=== PATIENT | male | born 1945 | race Two or more races ===

== ENCOUNTER → 2024-07-04 | Outpatient (CLI) | payer MEDICARE, MEDICAID, SELFPAY ==
[2024-07-04 11:19] LABS: Basophils # (Auto) 0.1 Thou/mm3 (0.0-0.2); Basophils % (Auto) 1 % (0-2.5); Eosinophils # (Auto) 0.3 Thou/mm3 (0.0-0.5); Eosinophils % (Auto) 5 % (0-10); Hematocrit 34.1 % (41.0-53.0); Hemoglobin 11.5 g/dL (13.5-16.0); Immature Granulocytes % (Auto) 0 % (0-0); Immature Granulocytes Auto 0.02 Thou/mm3 (0.00-0.00); Lymphocytes % (Auto) 32 % (10-50); Mean Corpuscular HGB Conc 33.7 g/dl (31.0-37.0); Mean Corpuscular Hemoglobin 28.8 pg (25.0-35.0); Mean Corpuscular Volume 86 fL (80-100); Monocytes # (Auto) 0.5 Thou/mm3 (0.0-0.8); Monocytes % (Auto) 8 % (0-12); Neutrophils # (Auto) 3.4 Thou/mm3 (1.8-7.7); Neutrophils % (Auto) 55 % (37-80); Nucleated Red Blood Cell % 0 /100 WBC (0); Platelet Count 202 Thou/mm3 (140-440); RDW Standard Deviation 44.5 fL (35.1-43.9); Red Blood Count 3.99 Miln/mm3 (4.50-5.90); White Blood Count 6.2 Thou/mm3 (3.8-10.6)
[2024-07-04 11:44] LABS: Collection Type, Urine Clean Catch
[2024-07-04 11:48] LABS: Glucose Estimated Average 140 mg/dL (80-131); Hemoglobin A1C 6.5 % Hgb (4.8-6.0)
[2024-07-04 11:54] LABS: Alanine Aminotransferase 8 U/L (10-49); Albumin, Serum 4.1 gm/dL (3.4-4.8); Alkaline Phosphatase 91 U/L (46-116); Anion Gap 8 (7-16); Aspartate Amino Transferase 19 U/L (0-34); BUN/Creatinine Ratio 16 Ratio (12-20); Bilirubin,Direct 0.2 mg/dL (0.0-0.3); Bilirubin,Total 0.5 mg/dL (0.3-1.2); Blood Urea Nitrogen 25 mg/dL (9-23); Calcium 8.8 mg/dL (8.3-10.6); Carbon Dioxide 26.7 mMol/L (20.0-31.0); Cardiac Risk Estimate 2.2 RATIO (4.0-6.7); Chloride 108 mMol/L (98-107); Cholesterol 126 mg/dL (132-200); Creatinine (Component) 1.6 mg/dL (0.6-1.3); Glucose 78 mg/dL (74-106); HDL Cholesterol 57 mg/dL (40-60); LDL Cholesterol,Calculated 55 mg/dL (0-130); Osmolality,Calculated 288 (275-295); Phosphorous 2.4 mg/dL (2.4-5.1); Potassium 3.8 mMol/L (3.4-5.1); Sodium 143 mMol/L (136-145); Triglycerides 70 mg/dL (30-150); eGFR 44 See Note
[2024-07-04 12:14] LABS: Bilirubin,Urine Negative (Negative); Blood,Urine Negative (Negative); Clarity,Urine Clear (Clear/Hazy); Color,Urine Lt-Yellow (Lt Yel-Yel); Glucose, Urine Negative (Negative); Ketones,Urine Negative (Negative); Leukocyte Esterase,Urine Negative (Negative); Nitrite,Urine Negative (Negative); PH,Urine 6.5 (5.0-7.0); Protein,Urine Trace (Neg - Trace); RBC,Urine 2 /hpf (0-3); Specific Gravity,Urine 1.012 (1.001-1.035); Squamous Epithelial Cell,Urine 1 /hpf (0-5); Urobilinogen,Urine Negative mg/dL (0.0-1.0); WBC,Urine < 1 /hpf (0-5)
== END | disposition home or self-care (01) ==
LOC: COPL 10:37
PROVIDERS: PCP Internal Medicine; Referring Provider Internal Medicine Nephrology; Visit Provider Internal Medicine Nephrology
DX: E78.5 Hyperlipidemia, unspecified (principal); E11.9 Type 2 diabetes mellitus without complications
CPT/HCPCS: 36415; 80048; 80061; 80076; 81001; 83036; 84100; 85025

== ENCOUNTER → 2024-07-07 | Outpatient (CLI) | payer MEDICARE, MEDICAID, SELFPAY ==
--- NOTE | 2024-07-07 13:44 | XR_ITS ---
Examination: Venous duplex lower extremity sonogram, bilateral. Date and time of exam: July 07, 2024 1356 hours INDICATIONS: Bilateral leg swelling beginning 2 months ago Technique: Multiple sonographic images of the deep venous system have been obtained. B-mode/2-D grayscale imaging of vascular structures and Doppler spectral analysis (waveforms) and color performed Both legs are examined. Findings: Deep venous systems do not demonstrate abnormal echogenicity. All visualized deep veins exhibit compressibility. All visualized deep veins exhibit augmentation. Impression: Negative for deep vein thrombosis
== END | disposition home or self-care (01) ==
PROVIDERS: PCP Internal Medicine; Referring Provider Internal Medicine; Visit Provider Internal Medicine
DX: R60.9 Edema, unspecified (principal); M79.606 Pain in leg, unspecified
CPT/HCPCS: 93970

== ENCOUNTER → 2024-07-27 | Outpatient (CLI) | payer MEDICARE, MEDICAID, SELFPAY ==
[2024-07-27 11:45] LABS: Basophils % (Auto) 1 % (0-2.5); Eosinophils # (Auto) 0.2 Thou/mm3 (0.0-0.5); Eosinophils % (Auto) 3 % (0-10); Hematocrit 34.6 % (41.0-53.0); Hemoglobin 11.9 g/dL (13.5-16.0); Immature Granulocytes % (Auto) 0 % (0-0); Immature Granulocytes Auto 0.01 Thou/mm3 (0.00-0.00); Lymphocytes # (Auto) 1.5 Thou/mm3 (1.0-4.8); Lymphocytes % (Auto) 26 % (10-50); Mean Corpuscular HGB Conc 34.4 g/dl (31.0-37.0); Mean Corpuscular Hemoglobin 29.4 pg (25.0-35.0); Mean Corpuscular Volume 85 fL (80-100); Monocytes # (Auto) 0.5 Thou/mm3 (0.0-0.8); Monocytes % (Auto) 8 % (0-12); Neutrophils # (Auto) 3.7 Thou/mm3 (1.8-7.7); Neutrophils % (Auto) 63 % (37-80); Nucleated Red Blood Cell % 0 /100 WBC (0); Platelet Count 133 Thou/mm3 (140-440); RDW Standard Deviation 46.9 fL (35.1-43.9); Red Blood Count 4.05 Miln/mm3 (4.50-5.90); White Blood Count 5.9 Thou/mm3 (3.8-10.6)
[2024-07-27 11:54] LABS: Glucose Estimated Average 123 mg/dL (80-131); Hemoglobin A1C 5.9 % Hgb (4.8-6.0)
[2024-07-27 12:10] LABS: Alanine Aminotransferase 15 U/L (10-49); Albumin/Globulin Ratio 2.2 (1.2-2.2); Alkaline Phosphatase 79 U/L (46-116); Anion Gap 7 (7-16); Aspartate Amino Transferase 17 U/L (0-34); BUN/Creatinine Ratio 16 Ratio (12-20); Bilirubin,Total 0.5 mg/dL (0.3-1.2); Blood Urea Nitrogen 21 mg/dL (9-23); Calcium 8.8 mg/dL (8.3-10.6); Calcium (Corrected) 8.8 mg/dL (8.5-10.1); Carbon Dioxide 29.2 mMol/L (20.0-31.0); Cardiac Risk Estimate 1.7 RATIO (4.0-6.7); Chloride 105 mMol/L (98-107); Cholesterol 136 mg/dL (132-200); Creatinine (Component) 1.3 mg/dL (0.6-1.3); Globulin 1.8 gm/dL (2.3-3.5); Glucose 72 mg/dL (74-106); HDL Cholesterol 79 mg/dL (40-60); LDL Cholesterol,Calculated 45 mg/dL (0-130); Osmolality,Calculated 283 (275-295); Potassium 4.1 mMol/L (3.4-5.1); Sodium 141 mMol/L (136-145); Total Protein 5.8 gm/dL (5.7-8.2); Triglycerides 59 mg/dL (30-150); eGFR 56 See Note
[2024-07-27 14:15] LABS: Creatinine MALB Rnd Ur 77 mg/dL (30-125); Microalbumin Creat Ratio 97 mg/gCrea (<30); Microalbumin, Random Urine 75 mg/L (0-300)
== END | disposition home or self-care (01) ==
LOC: COPL 10:55
PROVIDERS: PCP Internal Medicine; Referring Provider Internal Medicine; Visit Provider Internal Medicine
DX: I12.9 Hypertensive chronic kidney disease with stage 1 through stage 4 chronic kidney disease, or unspecified chronic kidney disease (principal); E11.22 Type 2 diabetes mellitus with diabetic chronic kidney disease; N18.30 Chronic kidney disease, stage 3 unspecified; E78.5 Hyperlipidemia, unspecified
CPT/HCPCS: 36415; 80053; 80061; 82043; 82570; 83036; 85025

== ENCOUNTER → 2024-10-10 | Outpatient (CLI) | payer MEDICARE, MEDICAID, SELFPAY ==
[2024-10-10 11:42] LABS: Collection Type, Urine Clean Catch
[2024-10-10 11:58] LABS: Basophils % (Auto) 0 % (0-2.5); Eosinophils % (Auto) 0 % (0-10); Hematocrit 39.5 % (41.0-53.0); Hemoglobin 13.3 g/dL (13.5-16.0); Immature Granulocytes % (Auto) 0 % (0-0); Immature Granulocytes Auto 0.03 Thou/mm3 (0.00-0.00); Lymphocytes % (Auto) 26 % (10-50); Mean Corpuscular HGB Conc 33.7 g/dl (31.0-37.0); Mean Corpuscular Hemoglobin 28.5 pg (25.0-35.0); Mean Corpuscular Volume 85 fL (80-100); Monocytes # (Auto) 0.6 Thou/mm3 (0.0-0.8); Monocytes % (Auto) 7 % (0-12); Neutrophils # (Auto) 5.1 Thou/mm3 (1.8-7.7); Neutrophils % (Auto) 66 % (37-80); Nucleated Red Blood Cell % 0 /100 WBC (0); Platelet Count 184 Thou/mm3 (140-440); RDW Standard Deviation 46.5 fL (35.1-43.9); Red Blood Count 4.67 Miln/mm3 (4.50-5.90); White Blood Count 7.7 Thou/mm3 (3.8-10.6)
[2024-10-10 12:12] LABS: Anion Gap 8 (7-16); BUN/Creatinine Ratio 17 Ratio (12-20); Blood Urea Nitrogen 25 mg/dL (9-23); Calcium 8.9 mg/dL (8.3-10.6); Calcium (Corrected) 8.9 mg/dL (8.5-10.1); Carbon Dioxide 31.9 mMol/L (20.0-31.0); Chloride 102 mMol/L (98-107); Creatinine (Component) 1.5 mg/dL (0.6-1.3); Glucose 95 mg/dL (74-106); Osmolality,Calculated 287 (275-295); Phosphorous 3.5 mg/dL (2.4-5.1); Sodium 142 mMol/L (136-145); eGFR 47 See Note
[2024-10-10 12:13] LABS: Bilirubin,Urine Negative (Negative); Blood,Urine Negative (Negative); Clarity,Urine Clear (Clear/Hazy); Color,Urine Lt-Yellow (Lt Yel-Yel); Glucose, Urine Negative (Negative); Hyaline Casts,Urine < 1 /hpf (0-1); Ketones,Urine Negative (Negative); Leukocyte Esterase,Urine Negative (Negative); Nitrite,Urine Negative (Negative); PH,Urine 7.5 (5.0-7.0); Protein,Urine Trace (Neg - Trace); RBC,Urine < 1 /hpf (0-3); Specific Gravity,Urine 1.011 (1.001-1.035); Squamous Epithelial Cell,Urine < 1 /hpf (0-5); Urobilinogen,Urine Negative mg/dL (0.0-1.0); WBC,Urine 1 /hpf (0-5)
== END | disposition home or self-care (01) ==
LOC: COPL 11:07
PROVIDERS: PCP Internal Medicine; Referring Provider Internal Medicine; Visit Provider Internal Medicine
DX: I12.9 Hypertensive chronic kidney disease with stage 1 through stage 4 chronic kidney disease, or unspecified chronic kidney disease (principal); N18.30 Chronic kidney disease, stage 3 unspecified
CPT/HCPCS: 36415; 80069; 81001; 85025

== ENCOUNTER 2024-12-22 20:18 | Emergency (ER) | payer MEDICARE, MEDICAID, SELFPAY ==
[2024-12-22 20:21] VITALS: BMI 29.8
[2024-12-22 22:21] VITALS: BP 202/84; BP 218/104; PULSE 69; RESP 16; TEMP 37.1; O2SAT 96
--- NOTE | 2024-12-22 22:51 | PD.EDRME ---
Rapid Medical Screening Exam RME Arrival date/time: 12/22/24 20:18 Chief Complaint: General Adult/Misc Complain Time Seen by Provider: 12/22/24 22:10 Vital signs: Vital Signs Temperature 98.8 F 12/22/24 22:21 Pulse Rate 69 12/22/24 22:21 Respiratory Rate 16 12/22/24 22:21 Blood Pressure 202/84 H 12/22/24 22:21 Pulse Oximetry (%) 96 12/22/24 22:21 Oxygen Delivery Method Room Air 12/22/24 22:21 Vital signs reviewed by provider: Yes RME Narrative: 79-year-old male presents to the ED with a complaint of inability to ambulate x 1 week as well as bilateral lower extremity edema for the past 3 weeks. He is under the care of a neurosurgeon in [place] and states he has a scheduled surgery on his lumbar spine on February 13. He states he did have a fall last Thursday. He has not contacted his neurosurgeon regarding the change in his condition. He denies any numbness or tingling to his bilateral lower extremities. He denies any loss of bladder or bowel control. He is also complaining of lower extremity edema. He has not contacted his primary care physician. Blood pressure is elevated tonight, stating he has not taken his blood pressure medication in 3 days because it is located in the kitchen and he has been unable to ambulate. His son had to carry him to the car tonight in order to get him to the ER. I have greeted and performed a focused initial assessment of this patient. A comprehensive ED assessment and evaluation of the patient, analysis of all test results, and completion of the medical decision making process will be conducted by additional ED providers.
--- NOTE | 2024-12-22 22:54 | XR_ITS ---
Examination: CT brain head without contrast. 2-D sagittal coronal reconstructions Date and time of exam:December 23, 2024 12:13 AM Comparison January 11, 2024 INDICATIONS: Altered mental status unable to walk today weakness CTDI: vol (mGy):51 DLP: (mGycm):972 Technique: Multiple CT axial sections of the brain have been obtained, 5 mm slice thickness. Contrast has not been administered. 2-D sagittal, coronal reconstructions have been obtained Low dose protocols were performed. One or more of the following dose reduction techniques were used; automated exposure control, adjustment of the mA and/or KV according to patient size, use of iterative reconstruction technique. Findings: No significant ventricular enlargement. Old infarct left cerebellar hemisphere Intra-axial or extra-axial hemorrhage density is not seen. No mass effect or midline shift Basal cisterns are not remarkable. Fourth ventricle is midline. Cranial vault intact. Chronic maxillary sinusitis Impression: Negative for acute hemorrhage, mass effect or midline shift Consider brain MRI follow up stroke protocol
--- NOTE | 2024-12-22 22:54 | XR_ITS ---
Examination: CT chest, without intravenous contrast. CT abdomen, without intravenous contrast. CT pelvis, without intravenous contrast. 2-D sagittal and coronal reconstructions. 3-D reconstructions. Date and time of exam:December 23, 2024 0016 hours INDICATIONS: Onset chest and generalized abdominal pain today CTDI vol (mgy) 11 DLP (MGycm)840 Technique: Multiple CT images, 3.0 mm slice thickness, obtained chest, abdomen, pelvis, with the high-resolution 64 slice scanner.. Sagittal and coronal 2-D reconstructions are obtained. 3-D reconstructions Low dose protocols were performed. One or more of the following dose reduction techniques were used; automated exposure control, adjustment of the mA and/or KV according to patient size, use of iterative reconstruction technique. Findings: No thoracic aortic aneurysm dilatation Pulmonary artery segments are not enlarged Moderate calcification left anterior descending coronary artery Mild enlargement cardiac contour 4 mm pulmonary nodule right lower lobe No lobar pneumonia or pulmonary edema. Small liver calcifications Gallbladder sludge versus calculi No pancreatic mass Mild nodular thickening left adrenal gland Moderate renal parenchymal scar formation No renal or ureteral calculi Aorta normal size Lipomatous mass in the left lateral abdominal wall image 176 No bowel obstruction No diverticulitis Contracted urinary bladder minimal urinary bladder wall thickening Prominent osteopenia with lumbar fusion L5-S1 with satisfactory alignment, diffuse moderate thoracic lumbar degenerative disc disease IMPRESSION: No pneumonia or pulmonary edema 4 mm pulmonary nodule right lower lobe, with this study is baseline recommended 6 month follow-up CT chest without contrast Gallbladder sludge versus calculi, negative for cholecystitis No renal or ureteral calculi. No pericecal inflammatory change No bowel obstruction or diverticulitis
--- NOTE | 2024-12-22 22:55 | XR_ITS ---
Examination: CT lumbar spine, without contrast. 2-D sagittal reconstructions. 2-D coronal reconstructions. 3-D reconstructions. Date and time of exam:December 23, 2024 0019 hours INDICATIONS: Low back pain with bilateral leg weakness today CTDI: vol (mGy): 51 DLP: (mGycm):1490 Technique: Multiple 1.25 mm axial sections of the lumbar spine without intravenous contrast have been obtained. 2-D sagittal and coronal reconstructions have been obtained. 3-D reconstructions have been obtained. Low dose protocols were performed. One or more of the following dose reduction techniques were used; automated exposure control, adjustment of the mA and/or KV according to patient size, use of iterative reconstruction technique. Findings: Prominent osteopenia Transpedicular lumbar fusion L4-S1 with satisfactory alignment No lumbar fracture L5-S1 moderate bilateral neural foraminal stenosis L4-L5 moderate bilateral neural foraminal stenosis More cephalad levels unremarkable IMPRESSION: No lumbar fracture Transpedicular lumbar fusion L4-S1 with satisfactory alignment L5-S1, L4-L5 moderate bilateral neural foraminal stenosis
--- NOTE | 2024-12-22 22:55 | EKG_ITS ---
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: : 1945 Requested By: Aftab David Order Number: [id number] Reading MD: Aftab David Measurements Intervals [place] Rate: 74 P: 241 RI: 339 QRS: -13 QRSD: 83 T: -79 QT: 391 QTc: 436 Interpretive Statements ELECTRONIC ATRIAL PACEMAKER ST DEVIATION AND MODERATE T-WAVE ABNORMALITY, CONSIDER ANTEROLATERAL ISCHEMIA [-0.1+ mV T-WAVE IN V3-V6] ST DEVIATION AND MODERATE T-WAVE ABNORMALITY, CONSIDER INFERIOR ISCHEMIA [-0.1+ mV T-WAVE IN II/aVF] Compared to ECG 01/09/2024 16:05:29 T-wave abnormality now present Possible ischemia now present Sinus rhythm no longer present First degree AV block no longer present Myocardial infarct finding no longer present /store/S0/[id number]/[id number].pdf
--- NOTE | 2024-12-22 22:55 | XR_ITS ---
Examination: AP chest single view Technique AP portable upright chest single view Date and time: December 22, 2024, 1104 hours INDICATIONS: Chest pain shortness of breath today FINDINGS: Normal heart size Cardiac leads stable position compared to November 06, 2023 No pneumonia or pulmonary edema IMPRESSION: No active disease
[2024-12-22 23:21] VITALS: BP 202/84; PULSE 69
[2024-12-22] MEDS: cloNIDine HCL 0.1 MG TABLET 0.3 MG PO (23:21)
[2024-12-22 23:45] LABS: Lactate (Lactic Acid) 1.9 mMol/L (0.4-2.0)
[2024-12-22 23:51] LABS: Basophils % (Auto) 0 % (0-2.5); Eosinophils # (Auto) 0.2 Thou/mm3 (0.0-0.5); Eosinophils % (Auto) 3 % (0-10); Hematocrit 39.1 % (41.0-53.0); Hemoglobin 13.5 g/dL (13.5-16.0); Immature Granulocytes % (Auto) 0 % (0-0); Immature Granulocytes Auto 0.02 Thou/mm3 (0.00-0.00); Lymphocytes # (Auto) 1.9 Thou/mm3 (1.0-4.8); Lymphocytes % (Auto) 26 % (10-50); Mean Corpuscular HGB Conc 34.5 g/dl (31.0-37.0); Mean Corpuscular Hemoglobin 29.6 pg (25.0-35.0); Mean Corpuscular Volume 86 fL (80-100); Monocytes # (Auto) 0.6 Thou/mm3 (0.0-0.8); Monocytes % (Auto) 8 % (0-12); Neutrophils # (Auto) 4.4 Thou/mm3 (1.8-7.7); Neutrophils % (Auto) 62 % (37-80); Nucleated Red Blood Cell % 0 /100 WBC (0); Platelet Count 207 Thou/mm3 (140-440); RDW Standard Deviation 47.5 fL (35.1-43.9); Red Blood Count 4.56 Miln/mm3 (4.50-5.90); White Blood Count 7.1 Thou/mm3 (3.8-10.6)
[2024-12-22 23:57] LABS: Base Excess, Venous 2 (-3-3); O2 Saturation, Venous 50 % (96-97); PCO2, Venous 43 mmHg (36-56); PO2, Venous 26 mmHg (15-58)
[2024-12-23] VITALS (43 sets, daily range): BP systolic 125–216; BP diastolic 69–112; PULSE 61–95; RESP 12–31; TEMP 36.4–37.1; O2SAT 93–99
--- NOTE | 2024-12-23 | XR_ITS ---
Examination: Venous duplex lower extremity sonogram, bilateral. Date and time of exam: December 23, 2024 0028 hours INDICATIONS: Bilateral hip and leg pain one year Technique: Multiple sonographic images of the deep venous system have been obtained. B-mode/2-D grayscale imaging of vascular structures and Doppler spectral analysis (waveforms) and color performed Both legs are examined. Findings: Deep venous systems do not demonstrate abnormal echogenicity. All visualized deep veins exhibit compressibility. All visualized deep veins exhibit augmentation. Impression: Negative for deep vein thrombosis
--- NOTE | 2024-12-23 | XR_ITS ---
Examination: MRI brain without intravenous contrast. Date and time of exam: December 23, 2024 1310 hours Comparison August 2011 INDICATIONS: Weakness and swelling in the legs 3 weeks, unable to walk one week Technique: Multiple axial and sagittal images of the brain obtained. Siemens high-resolution 1.5 [place] short bore scanners utilized. Sagittal sections, T1-weighted, TR 500, TE 14, are performed. Axial sections proton-density and T2-weighted have been obtained. Inversion recovery axial images, TR 9, 260, TE 111, TI 2500. Diffusion weighted images, axial sections, TR 4800, TE 128, B value 1000 Axial sections, ADC map, TR 4800, TE 128 Findings: Enlargement of the sella turcica is not present. The optic chiasm and infundibular are not remarkable. Prepontine and interpeduncular cisterns are not enlarged. There is no localized enlargement of the medulla or rozina. Fourth ventricle and cerebellar tonsils appear normal in position. No subacute area of hemorrhage density is seen. Mass in the cerebellopontine angle region is not evident. Globes symmetrical. Orbital musculature including medial lateral rectus muscles do not exhibit abnormality. Diffusion-weighted images demonstrate no focus of restricted diffusion. Increased white matter signal prominent, including old infarct left cerebellar hemisphere Mass effect upon the ventricular system is not identified. Impression: Negative for acute hemorrhage mass effect or midline shift No acute infarct Old infarct left cerebellar hemisphere
--- NOTE | 2024-12-23 | XR_ITS ---
Examination: MRI lumbar spine without contrast Date and time of exam: December 23, 2024 1328 hours Comparison November 04, 2023 INDICATIONS: Back pain, history fall one week ago difficulty walking and lower extremity weakness Technique: Multiple MRI axial and sagittal sections lumbar spine. Sagittal T2-weighted images, TR 3500, TE 118 T1 weighted transverse sections, TR 688 T8.5, T2-weighted sagittal sections T1 weighted sagittal sections TR 621, TE 30 T2 axial sections, TR 4, 190, TE 84. Findings: Transpedicular lumbar fusion L4-S1 with anatomic alignment No acute lumbar fracture Disc desiccation L2-L3, L3-L4 No spondylolisthesis Laminectomies L5 L4 L5-S1 no disc protrusion L4-L5 no disc protrusion L3-L4 moderate to severe overall spinal stenosis, 5 mm central lumbar disc bulge, prominent facet arthropathy and thickening of ligamentum flavum, circumferentially narrowing the thecal sac, axial image 8 with mild right L3 ganglionic compression L2-L3 2 mm central lumbar disc bulge L1-L2 no disc protrusion IMPRESSION: L3-L4 moderate to severe overall spinal stenosis
[2024-12-23 00:01] LABS: Sed Rate (ESR) 24 mm/hr (0-20)
[2024-12-23 00:03] LABS: Partial Thromboplastin Time 20.7 Seconds (22.0-36.0); Prothrombin Time 10.7 Seconds (9.0-12.2)
[2024-12-23 00:06] LABS: B-Type Natriuretic Peptide 179 pg/mL (0-100)
[2024-12-23 00:20] LABS: Collection Type, Urine Clean Catch
[2024-12-23 00:21] LABS: Alanine Aminotransferase 7 U/L (10-49); Albumin, Serum 4.3 gm/dL (3.4-4.8); Albumin/Globulin Ratio 1.9 (1.2-2.2); Alcohol, Blood Medical < 3.0 mg/dL (0-10.0); Alkaline Phosphatase 121 U/L (46-116); Anion Gap 13 (7-16); Aspartate Amino Transferase 18 U/L (0-34); BUN/Creatinine Ratio 12 Ratio (12-20); Bilirubin,Direct 0.1 mg/dL (0.0-0.3); Bilirubin,Total 0.4 mg/dL (0.3-1.2); Blood Urea Nitrogen 17 mg/dL (9-23); Calcium 9.1 mg/dL (8.3-10.6); Calcium (Corrected) 9.1 mg/dL (8.5-10.1); Carbon Dioxide 27.2 mMol/L (20.0-31.0); Chloride 107 mMol/L (98-107); Creatine Kinase 66 U/L (34-171); Creatinine (Component) 1.4 mg/dL (0.6-1.3); Estimated Creatinine Clearance 43.5 mL/min (>60); Free T4 (Free Thyroxine) 1.35 ng/dL (0.89-1.76); Globulin 2.3 gm/dL (2.3-3.5); Glucose 108 mg/dL (74-106); Osmolality,Calculated 294 (275-295); Potassium 3.6 mMol/L (3.4-5.1); Procalcitonin 0.05 ng/ml (0.0-0.49); Sodium 147 mMol/L (136-145); Total Protein 6.6 gm/dL (5.7-8.2); Troponin I < 0.020 ng/mL (0.0-0.045); eGFR 51 See Note
[2024-12-23 00:29] LABS: Bilirubin,Urine Negative (Negative); Blood,Urine Negative (Negative); Clarity,Urine Clear (Clear/Hazy); Color,Urine Lt-Yellow (Lt Yel-Yel); Culture Indicated,Urine Yes; Glucose, Urine 4+ (Negative); Ketones,Urine Negative (Negative); Leukocyte Esterase,Urine Negative (Negative); Nitrite,Urine Negative (Negative); PH,Urine 6.5 (5.0-7.0); Protein,Urine Trace (Neg - Trace); RBC,Urine < 1 /hpf (0-3); Specific Gravity,Urine 1.012 (1.001-1.035); Squamous Epithelial Cell,Urine 3 /hpf (0-5); Urobilinogen,Urine Negative mg/dL (0.0-1.0); WBC,Urine 11 /hpf (0-5)
[2024-12-23 00:38] LABS: Amphetamine/Methamp Scrn,U Negative (Negative); Barbiturate Screen,Urine Negative (Negative); Benzodiazepines Screen,Urine Negative (Negative); Benzoylecgonine Screen, Ur Negative (Negative); Fentanyl Screen,Urine Negative (Negative); Opiate Screen,Urine Positive (Negative); THC Screen,Urine Negative (Negative)
--- NOTE | 2024-12-23 01:07 | PRELIM_ITS ---
CT scan of the head without intravenous contrast (axial sections with sagittal and coronal reformats) December 23, 2024 0013 hours Clinical history: Can't ambulate Comparison: None Findings: There is no evidence of intracranial hemorrhage, mass effect or midline shift. There is old infarct in the left cerebellum. There are periventricular white matter hypodensities, compatible with chronic small vessel ischemia. No definitive wedge shaped acute infarcts are detected. Please note that subtle early infarcts are better assessed using diffusion weighted MR imaging if clinically indicated. There is mild volume loss. There is atheromatous calcification of the intracranial arteries. The calvarium is unremarkable. There are chronic fractures of bilateral lamina papyracea. There is mild mucosal thickening in the bilateral maxillary sinuses. The mastoid air cells are clear. Impression: No evidence of intracranial hemorrhage, mass effect or midline shift. If there are persistent clinical symptoms or additional clinical concerns, consider MRI. Generalized cerebral atrophy and chronic small vessel ischemic change with chronic infarct as described above. Report Electronically Signed By: Flynn Portillo 12/23/2024 1:06:36 AM [EST]
--- NOTE | 2024-12-23 01:10 | PRELIM_ITS ---
ORIGINAL REPORT CT scan of the chest, abdomen and pelvis without intravenous contrast (axial sections with 3D, sagittal and coronal reformats) December 23, 2024 0016 hours Clinical History: Chest/abdominal pain Comparison: None Findings: Dependent and streaky atelectasis at the lung bases. The lungs are otherwise clear. There is no focal consolidation, pleural effusion or pneumothorax. The thoracic aorta demonstrates atheromatous calcification without evidence of aneurysm. No evidence of mediastinal mass or lymphadenopathy. There is no pericardial effusion. A cardiac pacemaker is identified in the left chest wall with its lead tips in the right atrium and ventricle respectively. The spleen, pancreas and adrenals are unremarkable on this noncontrast study. Calcific densities are seen in the liver, likely representing calcified granulomas. There are dependent hyperdensities within the gallbladder which may represent sludge/calculi without CT features to suggest acute cholecystitis. Nonspecific perinephric fat stranding is noted bilaterally. No evidence of renal/ureteric calculus or hydroureteronephrosis. No evidence of bowel obstruction. Ileocolic anastomotic sutures are seen in the right mid abdomen. A moderate amount of fecal material is present in the colon. The abdominal aorta demonstrates atheromatous calcification without evidence of aneurysm. The urinary bladder is partially distended and shows mild wall thickening; possibility of cystitis or bladder outlet obstruction cannot be excluded. There is mild prostatomegaly indenting the bladder base. There is no free fluid or free air. Osseous degenerative changes are noted. There are bilateral laminectomies at L5. There are pedicle fixation screws and posterior fusion rods from L4 through S1. There is mild chronic anterior wedge compression deformity of the T1 vertebral body. There is anterior fusion device in the mid cervical spine incompletely imaged. There is a 5.3 x 2.6 cm intramuscular lipoma in the left mid lateral abdominal wall. Please note that evaluation of soft tissue/vascular structures and bowel loops is limited due to absence of IV and oral contrast. Impression: 1. No acute intrathoracic pathology. 2. Gallbladder sludge/calculi without CT features to suggest acute cholecystitis. 3. No evidence of bowel obstruction. 4. Partially distended urinary bladder with mild wall thickening; possibility of cystitis or bladder outlet obstruction cannot be excluded. 5. Other findings as described above. Suggest clinical correlation and follow up accordingly. Report Electronically Signed By: Flynn Portillo 12/23/2024 1:09:26 AM [EST] ADDENDUM REPORT There is a 1 cm indeterminate left adrenal nodule (HU 42). Suggest correlation with clinical findings, comparison with prior studies and follow up accordingly. Report Electronically Signed By: Flynn Portillo 12/23/2024 1:15:46 AM [EST]
--- NOTE | 2024-12-23 01:15 | PRELIM_ITS ---
CT scan of the lumbar spine without intravenous contrast (axial sections with sagittal and coronal reformats) December 23, 2024 0019 hours Clinical History: LBP and can't walk Comparison: None Findings: The evaluation is limited due to beam hardening artifacts from posterior spinal fusion instrumentation from L4 to S1. The bones are osteopenic. There is no evidence of acute fracture. There is mild degenerative retrolisthesis of L3 over L4 and anterolisthesis of L5 over S1. There are bilateral laminectomies at L4 and L5. There are pedicle fixation screws, posterior fusion rods and interbody fusion from L4 through S1. The vertebral body height is maintained. There are disc bulges along with facet and ligamentum flavum hypertrophy from L1-L2 through L3-L4 causing mild spinal canal and bilateral mild neural foraminal narrowing. There is anterior fusion at L4-L5 with disc spacer. There is significant bilateral neural foraminal narrowing at L4-L5. There is facet arthrosis and endplate spurs at L5-S1 causing severe bilateral neural foraminal narrowing; there is no significant spinal canal narrowing. The soft tissues are unremarkable. There is a 1 cm indeterminate left adrenal nodule (HU 42). Impression: 1. No evidence of acute fracture. 2. Postoperative changes as described. 3. Degenerative changes, most prominent at L4-L5 and L5-S1 levels as described. 4. A 1 cm indeterminate left adrenal nodule. 5. Other findings as described above. Suggest correlation with clinical findings, comparison with prior studies and follow up accordingly. Report Electronically Signed By: Flynn Portillo 12/23/2024 1:14:47 AM [EST]
--- NOTE | 2024-12-23 01:28 | XR_ITS ---
Examination: Abdomen sonogram, Limited Date and time of exam: December 23, 2024 0317 hours INDICATIONS: Onset abdominal pain today Technique: Real-time chen scale transabdominal sonographic images of the upper abdomen obtained. Findings: Normal gallbladder Normal common bile duct 0.2 cm Pancreatic head 2.5 cm Liver 15.8 cm fatty infiltration lobular contour no focal liver lesions Normal hepatopedal portal venous flow IMPRESSION: Normal gallbladder Suspect primary hepatocellular disease
--- NOTE | 2024-12-23 01:29 | EDNOTE_ITS ---
ED Weakness RME/HPI General Chief complaint: General Adult/Misc Complain Stated complaint: UNABLE TO WALK Time Seen by Provider: 12/22/24 22:10 Arrival date/time: 12/22/24 20:18 RME / HPI RME / HPI Narrative: 79-year-old male presents to the ED with a complaint of inability to ambulate x 1 week as well as bilateral lower extremity edema for the past 3 weeks. He is under the care of a neurosurgeon in [place] and states he has a scheduled surgery on his lumbar spine on February 13. He states he did have a fall last Thursday. He has not contacted his neurosurgeon regarding the change in his condition. He denies any numbness or tingling to his bilateral lower extremities. He denies any loss of bladder or bowel control. He is also complaining of lower extremity edema. He has not contacted his primary care physician. Blood pressure is elevated tonight, stating he has not taken his blood pressure medication in 3 days because it is located in the kitchen and he has been unable to ambulate. [facility]. I have greeted and performed a focused initial assessment of this patient. A comprehensive ED assessment and evaluation of the patient, analysis of all test results, and completion of the medical decision making process will be conducted by additional ED providers. This section includes all my notes and documentations, including HPI, PE, and ED course. Aftab Dee MD HPI: 79yo male with a history of DM, HTN, HLD, PVD, stroke, BPH, sick sinus syndrome s/p pacemaker placement here with inability to walk for about 5 days. Normally, he can stand and ambulate. No headache or dizziness. No chest pain or shortness of breath. He reports low back pain and bilateral hip pain. He also reports severe swelling in the legs. No other complaints. ROS: All negative except as documented in HPI. Physical Exam: General: Alert and oriented. No acute distress. High BP noted. Eyes: Conjunctivae and lids clear. EOMI. PERRL. ENT: No nasal congestion. Neck: Supple. No carotid bruit. No JVD. Heart: RRR. Lungs: No respiratory distress. Good air movement. No rhonchi, wheezing, rales. Abdomen: Soft and nontender. Normal bowel sounds. No distension. No rebound or guarding. Back: Equivocal lumbar spine tenderness. Legs: Moderate edema of the lower legs bilaterally. Skin: Warm and dry. Neuro: Alert and oriented X 3. Cranial Nerves II-XII grossly intact. No peripheral motor deficits. I reviewed all diagnostic test results. My interpretation of the EKG is paced rhythm. My interpretation of the chest x-ray is unremarkable. My review of the US gallbladder is NAD. My review of the US venous doppler of the lower extremities is negative for DVT. My review of the CT head report is NAD. My review of the CT chest abdomen pelvis report is possible cholelithiasis. My review of the CT lumbar spine report is: There is no evidence of acute fracture. There is mild degenerative retrolisthesis of L3 over L4 and anterolisthesis of L5 over S1. There are bilateral laminectomies at L4 and L5. There are pedicle fixation screws, posterior fusion rods and interbody fusion from L4 through S1. The vertebral body height is maintained. There are disc bulges along with facet and ligamentum flavum hypertrophy from L1-L2 through L3-L4 causing mild spinal canal and bilateral mild neural foraminal narrowing. There is anterior fusion at L4-L5 with disc spacer. There is significant bilateral neural foraminal narrowing at L4-L5. There is facet arthrosis and endplate spurs at L5-S1 causing severe bilateral neural foraminal narrowing; there is no significant spinal canal narrowing. Blood tests are unremarkable. Urinalysis remarkable for 11 WBC. UDS is positive for opiates. COVID/influenza negative. Treatment here included Clonidine, Hydralazine, Rocephin. With still unclear etiology of inability to walk, MRI ordered. At 6 AM on 12/23/2024, the care of the patient was transferred to Dr. Puente. Aftab Dee MD Related Data Home Medications ?Medication ?Instructions ?Recorded ?Confirmed nifedipine 30 mg tablet,extended 30 mg PO QDAY ##180 0 03/24/17 01/10/24 release (Nifedipine ER) furosemide 20 mg tablet 20 mg PO QDAY 08/05/1901/09 atorvastatin 10 mg tablet (Lipitor) 10 mg PO QPM 11/2201/10/24 tamsulosin 0.4 mg capsule 0.4 mg PO QDAY 11/22/2012/19 clonidine HCl 0.1 mg tablet 0.2 mg PO HS 05/08/2112/19 aspirin 81 mg chewable tablet 1 tab PO DAILY 12/06/21 01/10/24 dulaglutide 1.5 mg/0.5 mL 0.5 ea subcut QDAY 12/06/21 11/06/23 subcutaneous pen injector (Trulicity) tizanidine 4 mg tablet 1 tab PO PRN PRN Pain 11/06/23 allopurinol 100 mg tablet 100 mg PO QDAY 11/06/2312/19 metoprolol succinate 50 mg 50 mg PO 1XD 11/06/2301/09 tablet,extended release 24 hr Previous Rx's ?Medication ?Instructions ?Recorded hydrocodone 5 mg-acetaminophen 325 1 tab PO Q8H PRN pa in #7 tabs 01/12/24 mg tablet cyclobenzaprine 5 mg tablet 5 mg PO TID PRN muscle spa sm #14 05/02/24 tabs Allergies Allergy/AdvReac Type Severity Reaction Status Date / Time No Known Allergies Allergy Verified 12/22/24 20:28 Review of Systems Review of Systems Systems Reviewed: All systems reviewed, normal except as documented Past Medical History Past Medical History NEUROLOGIC: Positive Neurological Disorders, Cerebrovascular Accident and Transient Ischemic Attacks (TIA); Negative Seizures CARDIAC: Positive Hypercholesterolemia and Hypertension; Negative Cardiac Disorders, Myocardial Infarction, Cardiac Arrhythmia, Atrial Fibrillation, Angina, Heart Murmur, Coronary Artery Disease, Atherosclerotic Heart Disease, Peripheral Vascular Disease, Aneurysm, Congestive Heart Failure, Congenital Heart Disease, Valvular Heart Disease, Rheumatic Fever, Cardiomyopathy, Edema, Pericarditis, Cellulitis, Deep Vein Thrombosis, Hypotension or Varicose Veins RESPIRATORY: Negative Chronic Obstructive Pulmonary Disease (COPD), Asthma, Tuberculosis or Sleep Apnea GASTROINTESTINAL: Positive Gastrointestinal Disorders and Obesity; Negative Hepatitis, Cirrhosis, Celiac Disease or Gall Bladder Disease GENITOURINARY: Positive Genitourinary Disorders, Kidney Stones, Prostate Cancer and Benign Prostatic Hyperplasia; Negative Renal Disease REPRODUCTIVE: Negative Testicular Cancer MUSCULOSKELETAL: Positive Musculoskeletal Disorders, Arthritis, Gout and Carpal Tunnel Syndrome ENT: Positive Cataracts; Negative Ear Infection ENDOCRINE: Positive Diabetes Mellitus Type 2; Negative Endocrine Disorders, Diabetes Mellitus Type 1, Hypoglycemia, Lucila's Syndrome, [place]'s Disease, Hyperthyroidism, Hypothyroidism, Parathyroid Disease, Pituitary Disease, Syndrome of Inappropriate Antidiuretic Hormone (SIADH) or Adrenal Disease HEMATOLOGIC: Positive Anemia; Negative Blood Disorders or Sickle Cell Disease PSYCHO/SOCIAL: Negative Psychiatric Problems, Depression, Anxiety or Eating Disorder OTHER HISTORY: Positive Blood Transfusions, Cancer and Prostate Cancer; Negative Hospitalization, Autoimmune Disease, Shingles, Falls, Blood Transfusion Reaction, Anesthesia Reactions, Chemotherapy, Radiation Therapy, MRSA, Chicken Pox, Measles, Mumps or Testicular Cancer Family History FAMILY HISTORY: Positive Family Cardiac Disorders, Family Cancer and Family Surgery; Negative Family Psychiatric Problems, Family Respiratory Disorders, Family Gastrointestinal Problems or Family Anesthesia Reaction Surgical History SURGICAL: Positive Angiogram, Eye Surgery and Joint Replacement; Negative Cardiac Surgery, Pacemaker, Endocrine Surgery, Abdominal Surgery or Brain Shunt Social History SMOKING STATUS: Never smoker SECOND HAND EXPOSURE: No ED Exam Narrative Physical exam: As noted in HPI. Course Quality Measures none Orders Category Date Time Status Bedside COVID-19 Antigen Test NOW Care 12/22/24 22:53 Active Bedside Influenza A&B Antigen Test NOW Care 12/22/24 22:53 Completed EKG (ED ONLY) *Do not use* NOW Care 12/22/24 22:55 Completed MRI Screening NOW Care 12/23/24 05:01 Active Saline [Insert IV] NOW Care 12/22/24 22:53 Active Straight [In and Out Catheter] X1 Care 12/22/24 22:[address] chest abdomen pelvis wo Stat Exams 12/22/24 22:[address] head/brain wo con Stat Exams 12/22/24 22:[address] lumbar spine wo con Stat Exams 12/22/24 22:55 Taken EKG (ED Only) Stat Exams 12/22/24 22:55 Draft MR head/brain wo con Stat Exams 12/23/24 Ordered MR lumbar spine wo con Stat Exams 12/23/24 Ordered US gall bladder Stat Exams 12/23/24 01:28 Taken US venous doppler LE BI Stat Exams 12/23/24 00:00 Taken XR chest 1V portable Stat Exams 12/22/24 22:55 Completed Alcohol, Blood Medical Stat Lab 12/22/24 23:29 Completed BNP [B-Type Natriuretic Peptide] Stat Lab 12/22/24 23:29 Completed Bilirubin,Direct Stat Lab 12/22/24 23:29 Completed Blood Culture (Lab) Stat Lab 12/22/24 23:24 Received CBC Stat Lab 12/22/24 23:29 Completed CK [Creatine Kinase] Stat Lab 12/22/24 23:29 Completed CMP [Comprehensive Metabolic Panel] Stat Lab 12/22/24 23:29 Completed Drug Screen,Urine Stat Lab 12/22/24 00:14 Completed ESR [Sed Rate (ESR)] Stat Lab 12/22/24 23:29 Completed Free T4 (Free Thyroxine) Stat Lab 12/22/24 23:29 Completed Lactate (Lactic Acid) Stat Lab 12/22/24 23:29 Completed Magnesium Stat Lab 12/22/24 23:29 Completed PT [Prothrombin Time with INR] Stat Lab 12/22/24 23:29 Completed PTT [Partial Thromboplastin Time] Stat Lab 12/22/24 23:29 Completed Procalcitonin Stat Lab 12/22/24 23:29 Completed TSH [Thyroid Stimulating Hormone] Stat Lab 12/22/24 23:29 Completed Troponin I Stat Lab 12/22/24 23: Completed UA, C/S IF [Urinalysis, C/S if Indicated] Stat Lab 12/22/24 00:14 Completed Urine Culture Stat Lab 12/22/24 00:14 Received VBG [Venous Blood Gas] Stat Lab 12/22/24 23:29 Completed cefTRIAXone/D5w 1gm IV premix [Rocephin/D5w 1gm IV Med 12/23/24 02:34 Discontinued premix] 1 gm in 50 ml IV X1 cloNIDine HCL [Catapres] Med 12/22/24 22:53 Discontinued 0.3 mg PO X1 ONE hydrALAZINE INJ [Apresoline Inj] Med 12/23/24 02:34 Discontinued 10 mg IVP X1 ONE Vital Signs Vital signs: Vital Signs Temperature 98.8 F 12/22/24 22:21 Pulse Rate 69 12/22/24 22:21 Respiratory Rate 16 12/22/24 22:21 Blood Pressure 202/84 H 12/22/24 22:21 Pulse Oximetry (%) 96 12/22/24 22:21 Oxygen Delivery Method Room Air 12/22/24 22:21 Weakness Patient data External records reviewed:: [facility] previous records (Per chart review, patient was seen here on 05/15/24 for asymptomatic hypertension.) Clinical information provided by:: patient Social determinants that could affect healthcare access:: none Patient has the following chronic illnesses:: DM, HTN, HLD, PVD, remote history of stroke, BPH, sick sinus syndrome s/p pacemaker placement How is presenting disease/condition affected by chronic disease/condition?: uneffected by Evaluation data The following diagnostics were reviewed and interpreted by me:: lab results, radiology exam(s) and EKG tracing(s) Lab and/or radiology exams considered but not ordered:: none Interpretation Summary: My interpretation of the EKG is paced rhythm. My interpretation of the chest x-ray is unremarkable. My review of the US gallbladder is NAD. My review of the US venous doppler of the lower extremities is negative for DVT. My review of the CT head report is NAD. My review of the CT chest abdomen pelvis report is possible cholelithiasis. My review of the CT lumbar spine report is: There is no evidence of acute fracture. There is mild degenerative retrolisthesis of L3 over L4 and anterolisthesis of L5 over S1. There are bilateral laminectomies at L4 and L5. There are pedicle fixation screws, posterior fusion rods and interbody fusion from L4 through S1. The vertebral body height is maintained. There are disc bulges along with facet and ligamentum flavum hypertrophy from L1-L2 through L3-L4 causing mild spinal canal and bilateral mild neural foraminal narrowing. There is anterior fusion at L4-L5 with disc spacer. There is significant bilateral neural foraminal narrowing at L4-L5. There is facet arthrosis and endplate spurs at L5-S1 causing severe bilateral neural foraminal narrowing; there is no significant spinal canal narrowing. Blood tests are unremarkable. Urinalysis remarkable for 11 WBC. UDS is positive for opiates. COVID/influenza negative. Medications / Prescriptions Medications or Prescriptions considered but not ordered:: none Medication administrations:: Medication Administration History Discontinued Medications Clonidine (Clonidine Hcl 0.1 Mg Tablet) 0.3 mg PO X1 ONE Stop: 12/22/24 22:54 Last Admin: 12/22/24 23:21 Dose: 0.3 mg Documented By: Hydralazine HCl (Hydralazine Inj 20 Mg/Ml Vial) 10 mg IVP X1 ONE Stop: 12/23/24 02:35 Last Admin: 12/23/24 03:09 Dose: 10 mg Documented By: CCT Ceftriaxone Sodium/Dextrose (Rocephin/D5w 1gm Iv Premix) 1 gm in 50 mls @ 100 mls/hr IV X1 ONE Stop: 12/23/24 03:03 Last Infusion: 12/23/24 03:40 Dose: Infused Documented By: Admin: 12/23/24 03:08 Dose: 100 mls/hr Documented By: CCT Clonidine. Hydralazine, Rocephin Consultations Consultation(s) initiated? (list below): No Diagnosis Weakness Differential Diagnosis: acute myocardial infarction, anemia, hypoglycemia, hypothyroidism, rhabdomyolysis, sepsis, dehydration and other (CVA, brain tumor, lumbar radiculopathy, DVT) Most likely diagnosis given after review of the tests above:: Complete diagnostic test results are pending. Admission Indicated Admission indicated?: not indicated Explain why admission is indicated or not indicated:: Complete diagnostic test results are pending. Admission Request Was there a request for admission?: No Disposition Plan Disposition Plan: other (specify) (Care of the patient was transferred to next shift physician.) Discharge Plan Prescriptions/Referrals Prescriptions/Med Rec: No Action atorvastatin [Lipitor] 10 mg tablet 10 mg PO QPM tamsulosin 0.4 mg capsule 0.4 mg PO QDAY nifedipine [Nifedipine ER] 30 MG tablet extended release 30 mg PO QDAY Qty: 180 furosemide 20 mg Tablet 20 mg PO QDAY clonidine HCl 0.1 mg tablet 0.2 mg PO HS Patient Comments: take 1 tablet by mouth once daily tizanidine 4 mg tablet 1 tab PO PRN PRN (Reason: Pain) Patient Comments: take 1 tablet by mouth at bedtime NEEDED FOR FEVER pain aspirin 81 mg tablet,chewable 1 tab PO DAILY Patient Comments: chew and swallow 1 tablet by mouth once daily Trulicity 1.5 mg/0.5 mL pen injector 0.5 ea SUBCUT QDAY Patient Comments: inject 0.5 milliliters ( 1 AND 1/2 milligrams ) subcutaneously ev... (REFER TO PRESCRIPTION NOTES). metoprolol succinate 50 mg Tablet Extended Release 24 Hr 50 mg PO 1XD allopurinol 100 mg Tablet 100 mg PO QDAY hydrocodone-acetaminophen 5-325 mg tablet 1 tab PO Q8H MDD 3 PRN (Reason: pain) Qty: 7 0RF cyclobenzaprine 5 mg tablet 5 mg PO TID PRN (Reason: muscle spasm) Qty: 14 0RF Referrals: No Primary/Family,Physician [Primary Care Provider] - In 1 week Problem List Clinical Impression: Cannot walk, Leg edema, Hypertensive urgency Patient/Caregiver Discharge Instructions Print Language: American
--- NOTE | 2024-12-23 02:24 | PRELIM_ITS ---
Bilateral lower extremity venous Doppler ultrasound. December 23, 2024 0028 hours Clinical history: Edema, high DIMER Technique: Duplex scan of the bilateral lower extremity deep venous systems was performed utilizing 2D grayscale imaging, Doppler spectral analysis and color flow Doppler and with compression. Comparison: None. Findings: Waters scale, color flow and spectral Doppler evaluation of the lower extremity deep veins was performed. Right: The common femoral, superficial femoral and popliteal veins are patent and compressible. Normal respiratory variation is noted. There is no evidence of occlusive or nonocclusive thrombus. The great saphenous vein is patent at the level of the saphenofemoral junction. The calf veins to the extent visualized are patent. Left: The common femoral, superficial femoral and popliteal veins are patent and compressible. Normal respiratory variation is noted. There is no evidence of occlusive or nonocclusive thrombus. The great saphenous vein is patent at the level of the saphenofemoral junction. The calf veins to the extent visualized are patent. Impression: No sonographic evidence of deep venous thrombosis in both lower extremities. Report Electronically Signed By: Flynn Portillo 12/23/2024 2:24:03 AM [EST]
[2024-12-23] MEDS: cefTRIAXone/D5w 1gm IV premix 1 GM/50 ML BAG IV (03:08)
[2024-12-23] MEDS: hydrALAZINE INJ 20 MG/ML VIAL 10 MG IVP ×2 (03:09→06:53)
--- NOTE | 2024-12-23 06:06 | PC.NURSE ---
Pt is awake/alert/oriented x3. Respirations are even and unlabored. No s/s of acute distress noted. Aware of MRI ordered by MD, verbalized understanding of plan of care.
--- NOTE | 2024-12-23 06:40 | EDNOTE_ITS ---
Emergency Room Addendum <Manisha Westbrook - Last Filed: 12/23/24 16:30> Addendum Narrative: 0600: Care assumed from Dr. Dee, the previous shift emergency physician. Past medical, surgical, social and family history reviewed. Vitals and home medications reviewed. I will assume the care of the patient at this time. Please refer to the emergency department record for history and examination from initial visit.? Physical exam by me shows patient under no acute distress at this time. At this time patient's blood pressure has been going up despite clonidine given earlier this morning we gave a dose of hydralazine this morning blood pressure is now down to 147 systolic. Patient is comfortable sleeping waiting for MRIs. It is unclear why the patient's ambulation has diminished in the past 5 days therefore get MRI of the brain and the lumbar spine CBC unremarkable sed rate slightly elevated 24. Sodium is slightly elevated at 147 suggesting some mild dehydration creatinine is 1.4 which is baseline. BNP is 179 TSH is 6.8 with a free T4 normal at 135. Urinalysis is an nonclean-catch with 11 white cells of uncertain significance. Urine drug screen is positive for opiates. Patient had an MRI of the back a year ago and has chronic back problems; he has a back surgery scheduled in January with Dr. Amaral. He states that he always has pain but in the last 4 days his pain has increased and he cannot walk at all. He states he is able to stand with a lot of pain but not walk. He also has increased bilateral leg swelling. Denies any dysuria, incontinence, abdominal pain, chest pain, headache, head injury, loss of consciousness, or other symptoms at this time. 1600: Discussed test HPI, PMHx, lab, radiology results and/or management with Dr. Coates. She will see the patient at her office next week, can be discharged home. <Bharat Puente MD - Last Filed: 12/23/24 20:16> Addendum Narrative: 0600: Care assumed from Dr. Dee, the previous shift emergency physician. Past medical, surgical, social and family history reviewed. Vitals and home medications reviewed. I will assume the care of the patient at this time. Please refer to the emergency department record for history and examination from initial visit.? Physical exam by me shows patient under no acute distress at this time. At this time patient's blood pressure has been going up despite clonidine given earlier this morning we gave a dose of hydralazine this morning blood pressure is now down to 147 systolic. Patient is comfortable sleeping waiting for MRIs. It is unclear why the patient's ambulation has diminished in the past 5 days therefore get MRI of the brain and the lumbar spine CBC unremarkable sed rate slightly elevated 24. Sodium is slightly elevated at 147 suggesting some mild dehydration creatinine is 1.4 which is baseline. BNP is 179 TSH is 6.8 with a free T4 normal at 135. Urinalysis is an nonclean-catch with 11 white cells of uncertain significance. Urine drug screen is positive for opiates Results <Manisha Westbrook - Last Filed: 12/23/24 16:30> Objective Laboratory: Laboratory Last Values WBC 7.1 Thou/mm3 (3.8-10.6) 12/22/24 23: RBC 4.56 Miln/mm3 (4.50-5.90) 12/22/24 23: Hgb 13.5 g/dL (13.5-16.0) 12/22/24 23: Hct 39.1 % (41.0-53.0) L 12/22/24 23: MCV 86 fL (80-100) 12/22/24 23: MCH 29.6 pg (25.0-35.0) 12/22/24 23: MCHC 34.5 g/dl (31.0-37.0) 12/22/24 23:29 RDW Std Deviation 47.5 fL (35.1-43.9) H 12/22/24 23: Plt Count 207 Thou/mm3 (140-440) 12/22/24 23:29 Neut % (Auto) 62 % (37-80) 12/22/24 23: Lymph % (Auto) 26 % (10-50) 12/22/24 23: [place] % (Auto) 8 % (0-12) 12/22/24: Eos % (Auto) 3 % (0-10) 12/22/24: Baso % (Auto) 0 % (0-2.5) 12/22/24: Neut # (Auto) 4.4 Thou/mm3 (1.8-7.7) 12/22/24 23: Lymph # (Auto) 1.9 Thou/mm3 (1.0-4.8) 12/22/24: [place] # (Auto) 0.6 Thou/mm3 (0.0-0.8) 12/22/24: Eos # (Auto) 0.2 Thou/mm3 (0.0-0.5) 12/22/24: Baso # (Auto) 0.0 Thou/mm3 (0.0-0.2) 12/22/24: Immature Gran # (Auto) 0.02 Thou/mm3 (0.00-0.00) H 12/22/24: Absolute Nucleated RBC 0.00 Thou/mm3 (0.00-0.00) 12/22/24 Immature Gran % 0 % (0-0) 12/22/24: Nucleated RBC % 0 /100 WBC (0) 12/22/24: ESR 24 mm/hr (0-20) H 12/22/24: PT 10.7 Seconds (9.0-12.2) 12/22/24: INR 1.0 (0.9-1.3) 12/22/24 APTT 20.7 Seconds (22.0-36.0) L 12/22/24: VBG pH 7.40 (7.33-7.66) 12/22/24: VBG pCO2 43 mmHg (36-56) 12/22/24: VBG pO2 26 mmHg (15-58) 12/22/24: VBG O2 Sat (Mimi) 50 % (96-97) L 12/22/24: VBG Base Excess 2 (-3-3) 12/22/24: Sodium 147 mMol/L (136-145) H 12/22/24: Potassium 3.6 mMol/L (3.4-5.1) 12/22/24: Chloride 107 mMol/L (98-107) 12/22/24: Carbon Dioxide 27.2 mMol/L (20.0-31.0) 12/22/24: Anion Gap 13 (7-16) 12/22/24: BUN 17 mg/dL (9-23) 12/22/24 23: Creatinine 1.4 mg/dL (0.6-1.3) H 12/22/24 23: Estim Creat Clear Calc 43.5 mL/min (>60) L 12/22/24 23: eGFR 51 See Note (60-) L 12/22/24: BUN/Creatinine Ratio 12 Ratio (12-20) 12/22/24 23: Glucose 108 mg/dL (74-106) H 12/22/24 23: Calculated Osmolality 294 (275-295) 12/22/24: Lactic Acid 1.9 mMol/L (0.4-2.0) 12/22/24: Calcium 9.1 mg/dL (8.3-10.6) 12/22/24: Corrected Calcium 9.1 mg/dL (8.5-10.1) 12/22/24: Magnesium 2.0 mg/dL (1.6-2.6) 12/22/24: Total Bilirubin 0.4 mg/dL (0.3-1.2) 12/22/24: Direct Bilirubin 0.1 mg/dL (0.0-0.3) 12/22/24: AST 18 U/L (0-34) 12/22/24 23: ALT 7 U/L (10-49) L 12/22/24: Alkaline Phosphatase 121 U/L (46-116) H 12/22/24: Total Creatine Kinase 66 U/L (34-171) 12/22/24 23: Troponin I < 0.020 ng/mL (0.0-0.045) 12/22/24: B-Natriuretic Peptide 179 pg/mL (0-100) H 12/22/24: Total Protein 6.6 gm/dL (5.7-8.2) 12/22/24 23: Albumin 4.3 gm/dL (3.4-4.8) 12/22/24: Globulin 2.3 gm/dL (2.3-3.5) 12/22/24 23: Albumin/Globulin Ratio 1.9 (1.2-2.2) 12/22/24 23:29 Procalcitonin 0.05 ng/ml (0.0-0.49) 12/22/24 23:29 TSH 6.80 uIU/mL (0.55-4.78) H 12/22/24 23:29 Free T4 1.35 ng/dL (0.89-1.76) 12/22/24 23:29 Ur Collection Type Clean Catch 12/22/24 00:14 Urine Color Lt-Yellow (Lt Yel-Yel) 12/22/24 00:14 Urine Clarity Clear (Clear/Hazy) 12/22/24 00:14 Urine pH 6.5 (5.0-7.0) 12/22/24 00:14 Ur Specific [place] 1.012 (1.001-1.035) 12/22/24 00:14 Urine Protein Trace (Neg - Trace) 12/22/24 00:14 Urine Glucose (UA) 4+ (Negative) A 12/22/24 00:14 Urine Ketones Negative (Negative) 12/22/24 00:14 Urine Blood Negative (Negative) 12/22/24 00:14 Urine Nitrite Negative (Negative) 12/22/24 00:14 Urine Bilirubin Negative (Negative) 12/22/24 00:14 Urine Urobilinogen (Auto) Negative mg/dL (0.0-1.0) 12/22/24 00:14 Ur Leukocyte Esterase Negative (Negative) 12/22/24 00:14 Urine RBC < 1 /hpf (0-3) 12/22/24 00:14 Urine WBC 11 /hpf (0-5) H 12/22/24 00:14 Ur Squamous Epith Cells 3 /hpf (0-5) 12/22/24 00:14 Urine Bacteria None (None) 12/22/24 00:14 Ur Culture Indicated? Yes 12/22/24 00:14 Urine Opiates Screen Positive (Negative) A 12/22/24 00:14 Urine Fentanyl Screen Negative (Negative) 12/22/24 00:14 Ur Barbiturates Screen Negative (Negative) 12/22/24 00:14 U Amphetamin/Meth Scrn Negative (Negative) 12/22/24 00:14 U Benzodiazepines Scrn Negative (Negative) 12/22/24 00:14 U Cocaine Metab Screen Negative (Negative) 12/22/24 00:14 U Marijuana (THC) Screen Negative (Negative) 12/22/24 00:14 Ethyl Alcohol < 3.0 mg/dL (0-10.0) 12/22/24 23:29 Imaging: PAST MRI FROM 11/04/23 Procedure(s): MR lumbar spine wo con Findings: Lumbar fusion L4-S1 with satisfactory alignment Disc desiccation L2-L3, L3-L4 No spondylolisthesis Adequate marrow signal lumbar vertebral bodies L5-S1 no disc protrusion L4-L5 no disc protrusion L3-L4 6 mm central lumbar disc bulge with facet arthropathy and thickening of ligamentum flavum, moderate overall spinal stenosis, axial image 8 L2-L3 2 mm central lumbar disc bulge L1-L2 no disc protrusion IMPRESSION: Lumbar fusion L4-S1 with satisfactory alignment L3-L4 moderate overall spinal stenosis, including 6 mm central lumbar disc bulge Dictated By: Zaid Greer MD Procedure(s): XR chest 1V portable Accession Number(s): [id number] cc: Aftab Dee MD; Zaid Greer MD; NO PRIMARY/FAMILY,PHYSICIAN~ Examination: AP chest single view Technique AP portable upright chest single view Date and time: December 22, 2024, 1104 hours INDICATIONS: Chest pain shortness of breath today FINDINGS: Normal heart size Cardiac leads stable position compared to November 06, 2023 No pneumonia or pulmonary edema IMPRESSION: No active disease Dictated By: Zaid Greer MD Procedure(s): US gall bladder Accession Number(s): [id number] cc: Aftab Dee MD; Zaid Greer MD; NO PRIMARY/FAMILY,PHYSICIAN~ Examination: Abdomen sonogram, Limited Date and time of exam: December 23, 2024 0317 hours INDICATIONS: Onset abdominal pain today Technique: Real-time chen scale transabdominal sonographic images of the upper abdomen obtained. Findings: Normal gallbladder Normal common bile duct 0.2 cm Pancreatic head 2.5 cm Liver 15.8 cm fatty infiltration lobular contour no focal liver lesions Normal hepatopedal portal venous flow IMPRESSION: Normal gallbladder Suspect primary hepatocellular disease Dictated By: Zaid Greer MD Procedure(s): CT head/brain wo con Accession Number(s): [id number] cc: Aftab Dee MD; Zaid Greer MD; NO PRIMARY/FAMILY,PHYSICIAN~ Examination: CT brain head without contrast. 2-D sagittal coronal reconstructions Date and time of exam:December 23, 2024 12:13 AM Comparison January 11, 2024 INDICATIONS: Altered mental status unable to walk today weakness CTDI: vol (mGy):51 DLP: (mGycm):972 Technique: Multiple CT axial sections of the brain have been obtained, 5 mm slice thickness. Contrast has not been administered. 2-D sagittal, coronal reconstructions have been obtained Low dose protocols were performed. One or more of the following dose reduction techniques were used; automated exposure control, adjustment of the mA and/or KV according to patient size, use of iterative reconstruction technique. Findings: No significant ventricular enlargement. Old infarct left cerebellar hemisphere Intra-axial or extra-axial hemorrhage density is not seen. No mass effect or midline shift Basal cisterns are not remarkable. Fourth ventricle is midline. Cranial vault intact. Chronic maxillary sinusitis Impression: Negative for acute hemorrhage, mass effect or midline shift Consider brain MRI follow up stroke protocol Dictated By: Zaid Greer MD Procedure(s): CT chest abdomen pelvis wo Accession Number(s): [id number] cc: Aftab Dee MD; Zaid Greer MD; NO PRIMARY/FAMILY,PHYSICIAN~ Examination: CT chest, without intravenous contrast. CT abdomen, without intravenous contrast. CT pelvis, without intravenous contrast. 2-D sagittal and coronal reconstructions. 3-D reconstructions. Date and time of exam:December 23, 2024 0016 hours INDICATIONS: Onset chest and generalized abdominal pain today CTDI vol (mgy) 11 DLP (MGycm)840 Technique: Multiple CT images, 3.0 mm slice thickness, obtained chest, abdomen, pelvis, with the high-resolution 64 slice scanner.. Sagittal and coronal 2-D reconstructions are obtained. 3-D reconstructions Low dose protocols were performed. One or more of the following dose reduction techniques were used; automated exposure control, adjustment of the mA and/or KV according to patient size, use of iterative reconstruction technique. Findings: No thoracic aortic aneurysm dilatation Pulmonary artery segments are not enlarged Moderate calcification left anterior descending coronary artery Mild enlargement cardiac contour 4 mm pulmonary nodule right lower lobe No lobar pneumonia or pulmonary edema. Small liver calcifications Gallbladder sludge versus calculi No pancreatic mass Mild nodular thickening left adrenal gland Moderate renal parenchymal scar formation No renal or ureteral calculi Aorta normal size Lipomatous mass in the left lateral abdominal wall image 176 No bowel obstruction No diverticulitis Contracted urinary bladder minimal urinary bladder wall thickening Prominent osteopenia with lumbar fusion L5-S1 with satisfactory alignment, diffuse moderate thoracic lumbar degenerative disc disease IMPRESSION: No pneumonia or pulmonary edema 4 mm pulmonary nodule right lower lobe, with this study is baseline recommended 6 month follow-up CT chest without contrast Gallbladder sludge versus calculi, negative for cholecystitis No renal or ureteral calculi. No pericecal inflammatory change No bowel obstruction or diverticulitis Dictated By: Zaid Greer MD Procedure(s): CT lumbar spine wo con Accession Number(s): [id number] cc: Aftab Dee MD; Zaid Greer MD; NO PRIMARY/FAMILY,PHYSICIAN~ Examination: CT lumbar spine, without contrast. 2-D sagittal reconstructions. 2-D coronal reconstructions. 3-D reconstructions. Date and time of exam:December 23, 2024 0019 hours INDICATIONS: Low back pain with bilateral leg weakness today CTDI: vol (mGy): 51 DLP: (mGycm):1490 Technique: Multiple 1.25 mm axial sections of the lumbar spine without intravenous contrast have been obtained. 2-D sagittal and coronal reconstructions have been obtained. 3-D reconstructions have been obtained. Low dose protocols were performed. One or more of the following dose reduction techniques were used; automated exposure control, adjustment of the mA and/or KV according to patient size, use of iterative reconstruction technique. Findings: Prominent osteopenia Transpedicular lumbar fusion L4-S1 with satisfactory alignment No lumbar fracture L5-S1 moderate bilateral neural foraminal stenosis L4-L5 moderate bilateral neural foraminal stenosis More cephalad levels unremarkable IMPRESSION: No lumbar fracture Transpedicular lumbar fusion L4-S1 with satisfactory alignment L5-S1, L4-L5 moderate bilateral neural foraminal stenosis Dictated By: Zaid Greer MD Procedure(s): US venous doppler LE Accession Number(s): [id number] cc: Aftab Dee MD; Zaid Greer MD; NO PRIMARY/FAMILY,PHYSICIAN~ Examination: Venous duplex lower extremity sonogram, bilateral. Date and time of exam: December 23, 2024 0028 hours INDICATIONS: Bilateral hip and leg pain one year Technique: Multiple sonographic images of the deep venous system have been obtained. B-mode/2-D grayscale imaging of vascular structures and Doppler spectral analysis (waveforms) and color performed Both legs are examined. Findings: Deep venous systems do not demonstrate abnormal echogenicity. All visualized deep veins exhibit compressibility. All visualized deep veins exhibit augmentation. Impression: Negative for deep vein thrombosis Dictated By: Zaid Greer MD Procedure(s): MR lumbar spine wo con Accession Number(s): [id number] cc: Aftab Dee MD; Zaid Greer MD; NO PRIMARY/FAMILY,PHYSICIAN~ Examination: MRI lumbar spine without contrast Date and time of exam: December 23, 2024 1328 hours Comparison November 04, 2023 INDICATIONS: Back pain, history fall one week ago difficulty walking and lower extremity weakness Technique: Multiple MRI axial and sagittal sections lumbar spine. Sagittal T2-weighted images, TR 3500, TE 118 T1 weighted transverse sections, TR 688 T8.5, T2-weighted sagittal sections T1 weighted sagittal sections TR 621, TE 30 T2 axial sections, TR 4, 190, TE 84. Findings: Transpedicular lumbar fusion L4-S1 with anatomic alignment No acute lumbar fracture Disc desiccation L2-L3, L3-L4 No spondylolisthesis Laminectomies L5 L4 L5-S1 no disc protrusion L4-L5 no disc protrusion L3-L4 moderate to severe overall spinal stenosis, 5 mm central lumbar disc bulge, prominent facet arthropathy and thickening of ligamentum flavum, circumferentially narrowing the thecal sac, axial image 8 with mild right L3 ganglionic compression L2-L3 2 mm central lumbar disc bulge L1-L2 no disc protrusion IMPRESSION: L3-L4 moderate to severe overall spinal stenosis Dictated By: Zaid Greer MD Procedure(s): MR head/brain wo con Accession Number(s): [id number] cc: Aftab Dee MD; Zaid Greer MD; NO PRIMARY/FAMILY,PHYSICIAN~ Examination: MRI brain without intravenous contrast. Date and time of exam: December 23, 2024 1310 hours Comparison August 2011 INDICATIONS: Weakness and swelling in the legs 3 weeks, unable to walk one week Technique: Multiple axial and sagittal images of the brain obtained. Siemens high-resolution 1.5 [place] short bore scanners utilized. Sagittal sections, T1-weighted, TR 500, TE 14, are performed. Axial sections proton-density and T2-weighted have been obtained. Inversion recovery axial images, TR 9, 260, TE 111, TI 2500. Diffusion weighted images, axial sections, TR 4800, TE 128, B value 1000 Axial sections, ADC map, TR 4800, TE 128 Findings: Enlargement of the sella turcica is not present. The optic chiasm and infundibular are not remarkable. Prepontine and interpeduncular cisterns are not enlarged. There is no localized enlargement of the medulla or rozina. Fourth ventricle and cerebellar tonsils appear normal in position. No subacute area of hemorrhage density is seen. Mass in the cerebellopontine angle region is not evident. Globes symmetrical. Orbital musculature including medial lateral rectus muscles do not exhibit abnormality. Diffusion-weighted images demonstrate no focus of restricted diffusion. Increased white matter signal prominent, including old infarct left cerebellar hemisphere Mass effect upon the ventricular system is not identified. Impression: Negative for acute hemorrhage mass effect or midline shift No acute infarct Old infarct left cerebellar hemisphere Dictated By: Zaid Greer MD <Bharat Puente MD - Last Filed: 12/23/24 20:16> Objective Laboratory: Laboratory Last Values WBC 7.1 Thou/mm3 (3.8-10.6) 12/22/24: RBC 4.56 Miln/mm3 (4.50-5.90) 12/22/24: Hgb 13.5 g/dL (13.5-16.0) 12/22/24: Hct 39.1 % (41.0-53.0) L 12/22/24: MCV 86 fL (80-100) 12/22/24 23: MCH 29.6 pg (25.0-35.0) 12/22/24: MCHC 34.5 g/dl (31.0-37.0) 12/22/24: RDW Std Deviation 47.5 fL (35.1-43.9) H 12/22/24: Plt Count 207 Thou/mm3 (140-440) 12/22/24: Neut % (Auto) 62 % (37-80) 12/22/24: Lymph % (Auto) 26 % (10-50) 12/22/24: [place] % (Auto) 8 % (0-12) 12/22/24: Eos % (Auto) 3 % (0-10) 12/22/24: Baso % (Auto) 0 % (0-2.5) 12/22/24: Neut # (Auto) 4.4 Thou/mm3 (1.8-7.7) 12/22/24: Lymph # (Auto) 1.9 Thou/mm3 (1.0-4.8) 12/22/24: [place] # (Auto) 0.6 Thou/mm3 (0.0-0.8) 12/22/24: Eos # (Auto) 0.2 Thou/mm3 (0.0-0.5) 12/22/24: Baso # (Auto) 0.0 Thou/mm3 (0.0-0.2) 12/22/24: Immature Gran # (Auto) 0.02 Thou/mm3 (0.00-0.00) H 12/22/24: Absolute Nucleated RBC 0.00 Thou/mm3 (0.00-0.00) 12/22/24 Immature Gran % 0 % (0-0) 12/22/24: Nucleated RBC % 0 /100 WBC (0) 12/22/24: ESR 24 mm/hr (0-20) H 12/22/24: PT 10.7 Seconds (9.0-12.2) 12/22/24: INR 1.0 (0.9-1.3) 12/22/24: APTT 20.7 Seconds (22.0-36.0) L 12/22/24: VBG pH 7.40 (7.33-7.66) 12/22/24: VBG pCO2 43 mmHg (36-56) 06/05/25 23:29 VBG pO2 26 mmHg (15-58) 12/22/24 23: VBG O2 Sat (Mimi) 50 % (96-97) L 12/22/24 23: VBG Base Excess 2 (-3-3) 12/22/24 23: Sodium 147 mMol/L (136-145) H 12/22/24 23: Potassium 3.6 mMol/L (3.4-5.1) 12/22/24 23: Chloride 107 mMol/L (98-107) 12/22/24 23: Carbon Dioxide 27.2 mMol/L (20.0-31.0) 12/22/24: Anion Gap 13 (7-16) 12/22/24: BUN 17 mg/dL (9-23) 12/22/24: Creatinine 1.4 mg/dL (0.6-1.3) H 12/22/24 23: Estim Creat Clear Calc 43.5 mL/min (>60) L 12/22/24 23: eGFR 51 See Note (60-) L 12/22/24: BUN/Creatinine Ratio 12 Ratio (12-20) 12/22/24: Glucose 108 mg/dL (74-106) H 12/22/24 23: Calculated Osmolality 294 (275-295) 12/22/24: Lactic Acid 1.9 mMol/L (0.4-2.0) 12/22/24: Calcium 9.1 mg/dL (8.3-10.6) 12/22/24: Corrected Calcium 9.1 mg/dL (8.5-10.1) 12/22/24: Magnesium 2.0 mg/dL (1.6-2.6) 12/22/24 23: Total Bilirubin 0.4 mg/dL (0.3-1.2) 12/22/24: Direct Bilirubin 0.1 mg/dL (0.0-0.3) 12/22/24: AST 18 U/L (0-34) 12/22/24 23: ALT 7 U/L (10-49) L 12/22/24 23: Alkaline Phosphatase 121 U/L (46-116) H 12/22/24 23:29 Total Creatine Kinase 66 U/L (34-171) 12/22/24 23: Troponin I < 0.020 ng/mL (0.0-0.045) 12/22/24 23: B-Natriuretic Peptide 179 pg/mL (0-100) H 12/22/24 23: Total Protein 6.6 gm/dL (5.7-8.2) 12/22/24: Albumin 4.3 gm/dL (3.4-4.8) 12/22/24: Globulin 2.3 gm/dL (2.3-3.5) 12/22/24: Albumin/Globulin Ratio 1.9 (1.2-2.2) 12/22/24 Procalcitonin 0.05 ng/ml (0.0-0.49) 12/22/24: TSH 6.80 uIU/mL (0.55-4.78) H 12/22/24: Free T4 1.35 ng/dL (0.89-1.76) 12/22/24 23: Ur Collection Type Clean Catch 12/22/24 00:14 Urine Color Lt-Yellow (Lt Yel-Yel) 12/22/24 00:14 Urine Clarity Clear (Clear/Hazy) 12/22/24 00:14 Urine pH 6.5 (5.0-7.0) 12/22/24 00:14 Ur Specific [place] 1.012 (1.001-1.035) 12/22/24 00:14 Urine Protein Trace (Neg - Trace) 12/22/24 00:14 Urine Glucose (UA) 4+ (Negative) A 12/22/24 00:14 Urine Ketones Negative (Negative) 12/22/24 00:14 Urine Blood Negative (Negative) 12/22/24 00:14 Urine Nitrite Negative (Negative) 12/22/24 00:14 Urine Bilirubin Negative (Negative) 12/22/24 00:14 Urine Urobilinogen (Auto) Negative mg/dL (0.0-1.0) 12/22/24 00:14 Ur Leukocyte Esterase Negative (Negative) 12/22/24 00:14 Urine RBC < 1 /hpf (0-3) 12/22/24 00:14 Urine WBC 11 /hpf (0-5) H 12/22/24 00:14 Ur Squamous Epith Cells 3 /hpf (0-5) 12/22/24 00:14 Urine Bacteria None (None) 12/22/24 00:14 Ur Culture Indicated? Yes 12/22/24 00:14 Urine Opiates Screen Positive (Negative) A 12/22/24 00:14 Urine Fentanyl Screen Negative (Negative) 12/22/24 00:14 Ur Barbiturates Screen Negative (Negative) 12/22/24 00:14 U Amphetamin/Meth Scrn Negative (Negative) 12/22/24 00:14 U Benzodiazepines Scrn Negative (Negative) 12/22/24 00:14 U Cocaine Metab Screen Negative (Negative) 12/22/24 00:14 U Marijuana (THC) Screen Negative (Negative) 12/22/24 00:14 Ethyl Alcohol < 3.0 mg/dL (0-10.0) 12/22/24 23:29
[2024-12-23] MEDS: HYDROcodone/APAP 5/325 TABLET 1 TAB PO ×2 (12:32→16:37)
--- NOTE | 2024-12-23 13:07 | PC.NURSE ---
Patient taken inside MRI suite.
--- NOTE | 2024-12-23 15:09 | PC.NURSE ---
Pt successfully ambulated with cane and standby assistance. Pt stated he felt better after pain medication(Fel[place]) and less swelling. Pt requesting that we send him home with medicine to help with his swollen feet.
[2024-12-23] MEDS: FUROSEMIDE INJ 10 MG/ML 4ML VIAL 40 MG IVP (16:36)
== END 2024-12-23 16:49 | disposition home or self-care (01) ==
PROVIDERS: Emergency Medicine; Emergency Provider Emergency Medicine
DX: E11.51 Type 2 diabetes mellitus with diabetic peripheral angiopathy without gangrene (principal); E78.5 Hyperlipidemia, unspecified; I10 Essential (primary) hypertension; M25.551 Pain in right hip; M25.552 Pain in left hip; I16.0 Hypertensive urgency; M48.061 Spinal stenosis, lumbar region without neurogenic claudication; Z86.73 Personal history of transient ischemic attack (TIA), and cerebral infarction without residual deficits; R53.1 Weakness; R91.1 Solitary pulmonary nodule; M43.16 Spondylolisthesis, lumbar region; M47.817 Spondylosis without myelopathy or radiculopathy, lumbosacral region; M51.360 Other intervertebral disc degeneration, lumbar region with discogenic back pain only; M51.372 Other intervertebral disc degeneration, lumbosacral region with discogenic back pain and lower extremity pain; N40.0 Benign prostatic hyperplasia without lower urinary tract symptoms; Z95.0 Presence of cardiac pacemaker
CPT/HCPCS: 36415; 70450; 70551; 71045; 71250; 72131; 72148; 74176; 76705; 80053; 80307; 80320; 81001; 82248; 82550; 82803; 83605; 83735; 83880; 84145; 84439; 84443; 84484; 85025; 85610; 85652; 85730; 87040; 87086; 87400; 87811; 93005; 93970; 96365; 96375; 96376; 99284; J0360; J0696; J1938; A9270; G0480

== ENCOUNTER 2025-03-07 09:48 | Emergency (ER) | payer MEDICARE, MEDICAID, SELFPAY ==
[2025-03-07 10:19] VITALS: BP 172/89; PULSE 78; RESP 18; TEMP 36.7; O2SAT 97
[2025-03-07 10:20] VITALS: BMI 30.3
--- NOTE | 2025-03-07 10:21 | XR_ITS ---
EXAMINATION: Ankle, right 3 views . Technique: Ankle AP, oblique, lateral 3 views Date and time of exam: March 07, 2025 1144 hours INDICATIONS: Ankle swelling months FINDINGS: Bimalleolar soft tissue swelling Minute opacities in the soft tissue adjacent to the medial malleolus, clinical correlation advised No acute fracture Moderate osteoarthritis tibiotalar joint 5 mm plantar bony calcaneal spur IMPRESSION: Prominent bimalleolar soft tissue swelling No acute fracture Moderate osteoarthritis tibiotalar joint
--- NOTE | 2025-03-07 10:21 | XR_ITS ---
Examination: Foot bilateral, 6 views Technique: AP, oblique, lateral views each foot total 6 views Date and time of exam: May 07, 2025 1144 hours INDICATIONS: Bilateral lower extremity swelling and pain months FINDINGS: Prominent osteopenia Old fracture deformity proximal phalanx right first digit Bilateral moderate osteoarthritis first metatarsophalangeal joints Bilateral moderate osteoarthritis tibiotalar joints 8mm left plantar bony calcaneal spur, 4 mm right plantar bony calcaneal spur Prominent soft tissue swelling dorsum of the right foot No donato cortical bone destruction IMPRESSION: No donato cortical bone obstruction Prominent soft tissue swelling dorsum of the right foot
--- NOTE | 2025-03-07 10:21 | XR_ITS ---
Examination: Venous duplex lower extremity sonogram, bilateral. Date and time of exam: March 07, 2025 1040 hours INDICATIONS: Bilateral leg edema and pain beginning 6 months ago, patient is anticoagulated Technique: Multiple sonographic images of the deep venous system have been obtained. B-mode/2-D grayscale imaging of vascular structures and Doppler spectral analysis (waveforms) and color performed Both legs are examined. Findings: Deep venous systems do not demonstrate abnormal echogenicity. All visualized deep veins exhibit compressibility. All visualized deep veins exhibit augmentation. Impression: Negative for deep vein thrombosis
--- NOTE | 2025-03-07 10:22 | PD.EDRME ---
Rapid Medical Screening Exam RME Arrival date/time: 03/07/25 09:48 79-year-old male presents to the emergency department of complaint of bilateral lower extremity swelling and pain Chief Complaint: Ankle/Foot Injury Time Seen by Provider: 03/07/25 09:58 Vital signs: Vital Signs Temperature 98.0 F 03/07/25 10:19 Pulse Rate 78 03/07/25 10:19 Respiratory Rate 18 03/07/25 10:19 Blood Pressure 172/89 H 03/07/25 10:19 Pulse Oximetry (%) 97 03/07/25 10:19 Oxygen Delivery Method Room Air 03/07/25 10:19
[2025-03-07 10:45] LABS: Lactate (Lactic Acid) 1.6 mMol/L (0.4-2.0)
[2025-03-07 10:46] LABS: Basophils # (Auto) 0.0 Thou/mm3 (0.0-0.2); Basophils % (Auto) 1 % (0-2.5); Eosinophils # (Auto) 0.3 Thou/mm3 (0.0-0.5); Eosinophils % (Auto) 5 % (0-10); Hematocrit 36.6 % (41.0-53.0); Hemoglobin 12.2 g/dL (13.5-16.0); Immature Granulocytes Auto 0.01 Thou/mm3 (0.00-0.00); Lymphocytes # (Auto) 1.6 Thou/mm3 (1.0-4.8); Lymphocytes % (Auto) 26 % (10-50); Mean Corpuscular HGB Conc 33.3 g/dl (31.0-37.0); Mean Corpuscular Hemoglobin 28.7 pg (25.0-35.0); Mean Corpuscular Volume 86 fL (80-100); Monocytes # (Auto) 0.7 Thou/mm3 (0.0-0.8); Monocytes % (Auto) 11 % (0-12); Neutrophils # (Auto) 3.6 Thou/mm3 (1.8-7.7); Neutrophils % (Auto) 58 % (37-80); Nucleated Red Blood Cell # 0.00 Thou/mm3 (0.00-0.00); Nucleated Red Blood Cell % 0 /100 WBC (0); Platelet Count 223 Thou/mm3 (140-440); RDW Standard Deviation 43.2 fL (35.1-43.9); Red Blood Count 4.25 Miln/mm3 (4.50-5.90); White Blood Count 6.2 Thou/mm3 (3.8-10.6)
[2025-03-07 11:02] LABS: B-Type Natriuretic Peptide 268 pg/mL (0-100)
[2025-03-07 11:04] LABS: INR 1.0 (0.9-1.3); Prothrombin Time 10.9 Seconds (9.0-12.2)
[2025-03-07 11:16] LABS: Alanine Aminotransferase 9 U/L (10-49); Albumin, Serum 3.9 gm/dL (3.4-4.8); Albumin/Globulin Ratio 1.7 (1.2-2.2); Alkaline Phosphatase 115 U/L (46-116); Anion Gap 9 (7-16); Aspartate Amino Transferase 19 U/L (0-34); BUN/Creatinine Ratio 14 Ratio (12-20); Bilirubin,Total 0.4 mg/dL (0.3-1.2); Blood Urea Nitrogen 19 mg/dL (9-23); C-Reactive Protein 1.7 mg/dL (0.0-0.9); Calcium 9.6 mg/dL (8.3-10.6); Calcium (Corrected) 9.7 mg/dL (8.5-10.1); Carbon Dioxide 30.6 mMol/L (20.0-31.0); Chloride 102 mMol/L (98-107); Creatinine (Component) 1.4 mg/dL (0.6-1.3); Estimated Creatinine Clearance 43.8 mL/min (>60); Globulin 2.3 gm/dL (2.3-3.5); Glucose 130 mg/dL (74-106); Osmolality,Calculated 287 (275-295); Potassium 4.0 mMol/L (3.4-5.1); Procalcitonin 0.06 ng/ml (0.0-0.49); Sodium 142 mMol/L (136-145); Total Protein 6.2 gm/dL (5.7-8.2); eGFR 51 See Note
[2025-03-07 11:32] LABS: Sed Rate (ESR) 32 mm/hr (0-20)
[2025-03-07 15:58] VITALS: BP 153/80; PULSE 69; RESP 18; TEMP 36.8; O2SAT 98
--- NOTE | 2025-03-07 18:35 | PD.EDANKLE ---
Lower Extremity Injury RME/HPI General Chief Complaint: Ankle/Foot Injury Stated Complaint: Right foot swollen, fall yesterday Time Seen by Provider: 03/07/25 09:58 Arrival date/time: 03/07/25 09:48 RME / HPI RME / HPI Narrative: 03/07/25 09:48 79-year-old male presents to the emergency department of complaint of bilateral lower extremity swelling and pain See MDM for HPI documentation. Related Data Home Medications ?Medication ?Instructions ?Recorded ?Confirmed nifedipine 30 mg tablet,extended 30 mg PO QDAY ##180 03/24/17 01/10/24 release (Nifedipine ER) furosemide 20 mg tablet 20 mg PO QDAY 08/05/19 01/10/24 atorvastatin 10 mg tablet (Lipitor) 10 mg PO QPM 11/22/20 01/10/24 tamsulosin 0.4 mg capsule 0.4 mg PO QDAY 11/22/20 01/10/24 clonidine HCl 0.1 mg tablet 0.2 mg PO HS 05/08/21 01/10/24 aspirin 81 mg chewable tablet 1 tab PO DAILY 12/06/21 01/10/24 dulaglutide 1.5 mg/0.5 mL 0.5 ea subcut QDAY 12/06/21 11/06/23 subcutaneous pen injector (Trulicity) tizanidine 4 mg tablet 1 tab PO PRN PRN Pain 12/06/21 11/06/23 allopurinol 100 mg tablet 100 mg PO QDAY 11/06/23 01/10/24 metoprolol succinate 50 mg 50 mg PO 1XD 11/06/23 01/10/24 tablet,extended release 24 hr Previous Rx's ?Medication ?Instructions ?Recorded hydrocodone 5 mg-acetaminophen 325 1 tab PO Q8H PRN pain #7 tabs 01/12/24 mg tablet cyclobenzaprine 5 mg tablet 5 mg PO TID PRN muscle spasm #14 05/02/24 tabs furosemide 20 mg tablet (Lasix) 20 mg PO QDAY #30 tabs 12/23/24 hydrocodone 5 mg-acetaminophen 325 1 tab PO Q6H PRN pain #30 tabs 12/23/24 mg tablet acetaminophen 300 mg-codeine 30 mg 2 tab PO Q8H PRN pain #20 tabs 03/07/25 tablet amoxicillin 875 mg-potassium 1 tab PO BID #20 tabs 03/07/25 clavulanate 125 mg tablet clindamycin HCl 300 mg capsule 300 mg PO QID 10 days #40 caps 03/07/25 furosemide 20 mg tablet (Lasix) 20 mg PO QDAY #30 tabs 03/07/25 Allergies Allergy/AdvReac Type Severity Reaction Status Date / Time No Known Allergies Allergy Verified 03/07/25 09:54 Review of Systems Review of Systems Systems Reviewed: All systems reviewed, normal except as documented Past Medical History Past Medical History NEUROLOGIC: Positive Neurological Disorders, Cerebrovascular Accident and Transient Ischemic Attacks (TIA); Negative Seizures CARDIAC: Positive Hypercholesterolemia and Hypertension; Negative Cardiac Disorders, Myocardial Infarction, Cardiac Arrhythmia, Atrial Fibrillation, Angina, Heart Murmur, Coronary Artery Disease, Atherosclerotic Heart Disease, Peripheral Vascular Disease, Aneurysm, Congestive Heart Failure, Congenital Heart Disease, Valvular Heart Disease, Rheumatic Fever, Cardiomyopathy, Edema, Pericarditis, Cellulitis, Deep Vein Thrombosis, Hypotension or Varicose Veins RESPIRATORY: Negative Chronic Obstructive Pulmonary Disease (COPD), Asthma, Tuberculosis or Sleep Apnea GASTROINTESTINAL: Positive Gastrointestinal Disorders and Obesity; Negative Hepatitis, Cirrhosis, Celiac Disease or Gall Bladder Disease GENITOURINARY: Positive Genitourinary Disorders, Kidney Stones, Prostate Cancer and Benign Prostatic Hyperplasia; Negative Renal Disease REPRODUCTIVE: Negative Testicular Cancer MUSCULOSKELETAL: Positive Musculoskeletal Disorders, Arthritis, Gout and Carpal Tunnel Syndrome ENT: Positive Cataracts; Negative Ear Infection ENDOCRINE: Positive Diabetes Mellitus Type 2; Negative Endocrine Disorders, Diabetes Mellitus Type 1, Hypoglycemia, Sigourney's Syndrome, [place]'s Disease, Hyperthyroidism, Hypothyroidism, Parathyroid Disease, Pituitary Disease, Syndrome of Inappropriate Antidiuretic Hormone (SIADH) or Adrenal Disease HEMATOLOGIC: Positive Anemia; Negative Blood Disorders or Sickle Cell Disease PSYCHO/SOCIAL: Negative Psychiatric Problems, Depression, Anxiety or Eating Disorder OTHER HISTORY: Positive Blood Transfusions, Cancer and Prostate Cancer; Negative Hospitalization, Autoimmune Disease, Shingles, Falls, Blood Transfusion Reaction, Anesthesia Reactions, Chemotherapy, Radiation Therapy, MRSA, Chicken Pox, Measles, Mumps or Testicular Cancer Family History FAMILY HISTORY: Positive Family Cardiac Disorders, Family Cancer and Family Surgery; Negative Family Psychiatric Problems, Family Respiratory Disorders, Family Gastrointestinal Problems or Family Anesthesia Reaction Surgical History SURGICAL: Positive Angiogram, Eye Surgery and Joint Replacement; Negative Cardiac Surgery, Pacemaker, Endocrine Surgery, Abdominal Surgery or Brain Shunt Social History SMOKING STATUS: Never smoker SECOND HAND EXPOSURE: No ED Exam Narrative Physical exam: See [facility] for physical exam documentation. Course Quality Measures none Orders Category Date Time Status US venous doppler LE BI Stat Exams 03/07/25 10:21 Completed XR ankle comp RT min 3V Stat Exams 03/07/25 10:21 Completed XR foot comp BI min 3V Stat Exams 03/07/25 10:21 Completed BNP [B-Type Natriuretic Peptide] Stat Lab 03/07/25 10:36 Completed Blood Culture (Lab) Stat Lab 03/07/25 10:30 Received CBC Stat Lab 03/07/25 10:36 Completed CMP [Comprehensive Metabolic Panel] Stat Lab 03/07/25 10:36 Completed CRP [C-Reactive Protein] Stat Lab 03/07/25 10:36 Completed ESR [Sed Rate (ESR)] Stat Lab 03/07/25 10:36 Completed Lactic Acid [Lactate (Lactic Acid)] Stat Lab 03/07/25 10:36 Completed PT [Prothrombin Time with INR] Stat Lab 03/07/25 10:36 Completed Procalcitonin Stat Lab 03/07/25 10:36 Completed Vital Signs Vital signs: Vital Signs Temperature 98.0 F 03/07/25 10:19 Pulse Rate 78 03/07/25 10:19 Respiratory Rate 18 03/07/25 10:19 Blood Pressure 172/89 H 03/07/25 10:19 Pulse Oximetry (%) 97 03/07/25 10:19 Oxygen Delivery Method Room Air 03/07/25 10:19 Extremity Injury, Lower MDM Narrative [facility] Narrative:: This section includes all my notes and documentations, including HPI, PE, and ED course. Aftab Dee MD HPI: 79yo male here with worsening BLE swelling for a long time . Patient has had increased BLE redness and swelling over the last few days. No shortness of breath or chest pain. No other complaints reported. ROS: All negative except as documented in HPI. Physical Exam: General: Alert and oriented. No acute distress when remaining still. Eyes: Conjunctivae and lids clear. ENT: No nasal congestion. Neck: Supple. Heart: RRR. Lungs: No respiratory distress. Good air movement. No rhonchi, wheezing, rales. Abdomen: Soft and nontender. Normal bowel sounds. No distension. No rebound or guarding. Back: No CVA tenderness. Legs: Edema to the BLE. Skin: Warm and dry. Neuro: Alert and oriented X 3. I reviewed all diagnostic test results. My interpretation of the bilateral ankle x-ray is prominent bimalleolar soft tissue swelling. My interpretation of the bilateral foot x-ray is prominent soft tissue swelling dorsum of the right foot. My review of the US venous doppler bilateral lower extremities report is NAD. Blood tests remarkable for CRP 1.7, BNP 268. At this point, diagnoses include Cellulitis of leg, Leg edema. Based on my best medical judgment, made decision no further evaluation or treatment indicated at this time. Patient understands and agrees to the discharge instructions customized and printed, see below. Discharge Instructions from Dr. Dee printed for you: 1. After extensive evaluation, there is no life-threatening condition. Such as blood clots in your legs. 2. Your symptoms are due to cellulitis, infection. 3. Take Augmentin and clindamycin to kill the germs causing the severe infection. 4. Tylenol with codeine for severe pain. 5. To help decrease the swelling, elevate your feet/ankles above the waist level as much as possible. When you are resting or sitting or sleeping. This is extremely important. 6. Take Lasix 20 mg daily for 7 days then as needed. This will help decrease your swelling. Eat a banana daily because this can lower your potassium level. 7. See a private doctor on 03/08/2025 for recheck. Ask to review all test results and official radiology reports, to make sure you receive all necessary follow-ups and monitoring. Ask for help until you are completely better. 8. Seek immediate medical care with worsening or with any concerns. Aftab Dee MD Patient data External records reviewed:: [facility] previous records (Per chart review, patient was seen here on 12/23/24 due to not being able to walk.) Clinical information provided by:: patient Social determinants that could affect healthcare access:: none Patient has the following chronic illnesses:: DM, HTN, HLD, PVD, stroke, BPH, sick sinus syndrome s/p pacemaker placement How is presenting disease/condition affected by chronic disease/condition?: uneffected by Evaluation data The following diagnostics were reviewed and interpreted by me:: lab results and radiology exam(s) Lab and/or radiology exams considered but not ordered:: none Interpretation Summary: I reviewed all diagnostic test results. My interpretation of the bilateral ankle x-ray is prominent bimalleolar soft tissue swelling. My interpretation of the bilateral foot x-ray is prominent soft tissue swelling dorsum of the right foot. My review of the US venous doppler bilateral lower extremities report is NAD. Blood tests remarkable for CRP 1.7, BNP 268. Medications / Prescriptions Medications or Prescriptions considered but not ordered:: none Medication administrations:: none Consultations Consultation(s) initiated? (list below): No Diagnosis Extremity Injury, Lower Differential Diagnosis: ankle sprain and strain, ankle fracture and other (cellulitis, DVT, edema) Most likely diagnosis given after review of the tests above:: Cellulitis of leg, Leg edema Admission Indicated Admission indicated?: not indicated Explain why admission is indicated or not indicated:: With no condition needing emergent intervention, there was no indication for admission. Admission Request Was there a request for admission?: No Disposition Plan Disposition Plan: Discharge Discharge Attestation Discharge Attestation: The patient and all family members were given an opportunity to ask questions and understood the discharge instructions. Discharge instructions specifically effects, indications for sooner follow up or return to the emergency department, and the expected course of current diagnosis. Patient condition: Stable Discharge Plan Plan Patient Disposition: HOME (Self Care) Prescriptions/Referrals Prescriptions/Med Rec: New clindamycin HCl 300 mg capsule 300 mg PO QID 10 Days Qty: 40 0RF acetaminophen-codeine 300-30 mg tablet 2 tab PO Q8H MDD 6 PRN (Reason: pain) Qty: 20 0RF furosemide [Lasix] 20 mg tablet 20 mg PO QDAY Qty: 30 0RF amoxicillin-pot clavulanate 875-125 mg tablet 1 tab PO BID Qty: 20 0RF No Action atorvastatin [Lipitor] 10 mg tablet 10 mg PO QPM tamsulosin 0.4 mg capsule 0.4 mg PO QDAY nifedipine [Nifedipine ER] 30 MG tablet extended release 30 mg PO QDAY Qty: 180 furosemide 20 mg Tablet 20 mg PO QDAY clonidine HCl 0.1 mg tablet 0.2 mg PO HS Patient Comments: take 1 tablet by mouth once daily tizanidine 4 mg tablet 1 tab PO PRN PRN (Reason: Pain) Patient Comments: take 1 tablet by mouth at bedtime NEEDED FOR FEVER pain aspirin 81 mg tablet,chewable 1 tab PO DAILY Patient Comments: chew and swallow 1 tablet by mouth once daily Trulicity 1.5 mg/0.5 mL pen injector 0.5 ea SUBCUT QDAY Patient Comments: inject 0.5 milliliters ( 1 AND 1/2 milligrams ) subcutaneously ev... (REFER TO PRESCRIPTION NOTES). metoprolol succinate 50 mg Tablet Extended Release 24 Hr 50 mg PO 1XD allopurinol 100 mg Tablet 100 mg PO QDAY hydrocodone-acetaminophen 5-325 mg tablet 1 tab PO Q6H MDD 8 PRN (Reason: pain) Qty: 30 0RF furosemide [Lasix] 20 mg tablet 20 mg PO QDAY Qty: 30 0RF hydrocodone-acetaminophen 5-325 mg tablet 1 tab PO Q8H MDD 3 PRN (Reason: pain) Qty: 7 0RF cyclobenzaprine 5 mg tablet 5 mg PO TID PRN (Reason: muscle spasm) Qty: 14 0RF Referrals: Em Coates MD [Primary Care Provider] - In 1 week Problem List Clinical Impression: Cellulitis of leg, Leg edema Patient/Caregiver Discharge Instructions Discharge Activity: activity as tolerated Education Materials: ED Cellulitis Additional Instructions: Discharge Instructions from Dr. Dee printed for you: 1. After extensive evaluation, there is no life-threatening condition. Such as blood clots in your legs. 2. Your symptoms are due to cellulitis, infection. 3. Take Augmentin and clindamycin to kill the germs causing the severe infection. 4. Tylenol with codeine for severe pain. 5. To help decrease the swelling, elevate your feet/ankles above the waist level as much as possible. When you are resting or sitting or sleeping. This is extremely important. 6. Take Lasix 20 mg daily for 7 days then as needed. This will help decrease your swelling. Eat a banana daily because this can lower your potassium level. 7. See a private doctor on 03/08/2025 for recheck. Ask to review all test results and official radiology reports, to make sure you receive all necessary follow-ups and monitoring. Ask for help until you are completely better. 8. Seek immediate medical care with worsening or with any concerns. Print Language: Ukrainian Stand Alone Forms: [employer]iya Award Info., Patient Portal Info Letter
== END 2025-03-07 19:21 | disposition home or self-care (01) ==
PROVIDERS: Nurse Practitioner Primary Care; Emergency Provider Emergency Medicine; PCP Internal Medicine
DX: L03.115 Cellulitis of right lower limb (principal)
CPT/HCPCS: 36415; 73610; 73630; 80053; 83605; 83880; 84145; 85025; 85610; 85652; 86140; 87040; 93970; 99283

== ENCOUNTER 2025-04-04 09:20 | Inpatient (IN) | payer MEDICARE, MEDICAID, SELFPAY ==
[2025-04-04] VITALS (8 sets, daily range): BP systolic 128–153; BP diastolic 81–92; PULSE 60–86; RESP 16–18; TEMP 36.2–36.7; O2SAT 96–99; BMI 29.8
--- NOTE | 2025-04-04 09:42 | EKG_ITS ---
[facility] Test Date: 2025-04-04 Pat Name: RONNIE CALHOUN Department: Room: - Gender: Male Supervisor Type Photography: : 1945 Requested By: Johnnie Conner Order Number: [id number] Reading MD: Johnnie Conner Measurements Intervals Horner Rate: 63 P: 180 NV: 366 QRS: 8 QRSD: 89 T: -23 QT: 411 QTc: 421 Interpretive Statements ELECTRONIC ATRIAL PACEMAKER MODERATE T-WAVE ABNORMALITY, CONSIDER ANTERIOR ISCHEMIA [-0.1+ mV T-WAVE IN V3/V4] Compared to ECG 12/22/2024 22:58:35 No significant changes /store/S0/[id number].pdf
--- NOTE | 2025-04-04 09:42 | XR_ITS ---
Examination: AP lateral chest 2 views TECHNIQUE: Sitting AP lateral chest 2 views Date and time: April 04, 2025 0955 hours, comparison December 22, 2024 INDICATIONS: Chest pain today Swelling 2 months. FINDINGS: Mild prominence left ventricle. Cardiac leads satisfactory position. Blunting of left lateral costophrenic angle. No interval pneumonia or pulmonary edema. Prominent thoracic spondylosis IMPRESSION: No pneumonia or pulmonary edema.
--- NOTE | 2025-04-04 09:42 | PD.EDRME ---
Rapid Medical Screening Exam RME Arrival date/time: 04/04/25 09:20 79-year-old male with a history of hypertension, hyperlipidemia, diabetes, peripheral vascular disease, presents to the emergency room with a chief complaint of bilateral lower extremity swelling x 1 month I have greeted and performed a focused initial assessment of this patient. A comprehensive ED assessment and evaluation of the patient, analysis of all test results, and completion of the medical decision making process will be conducted by additional ED providers. Chief Complaint: Extremity Problem,Nontraumatic Vital signs reviewed by provider: Yes
[2025-04-04 10:52] LABS: INR 1.0 (0.9-1.3); Partial Thromboplastin Time 25.9 Seconds (22.0-36.0); Prothrombin Time 11.4 Seconds (9.0-12.2)
[2025-04-04 10:53] LABS: Basophils # (Auto) 0.0 Thou/mm3 (0.0-0.2); Basophils % (Auto) 1 % (0-2.5); Eosinophils # (Auto) 0.3 Thou/mm3 (0.0-0.5); Eosinophils % (Auto) 5 % (0-10); Hematocrit 32.8 % (41.0-53.0); Hemoglobin 10.9 g/dL (13.5-16.0); Immature Granulocytes Auto 0.01 Thou/mm3 (0.00-0.00); Lymphocytes # (Auto) 1.8 Thou/mm3 (1.0-4.8); Lymphocytes % (Auto) 30 % (10-50); Mean Corpuscular HGB Conc 33.2 g/dl (31.0-37.0); Mean Corpuscular Hemoglobin 27.9 pg (25.0-35.0); Mean Corpuscular Volume 84 fL (80-100); Monocytes # (Auto) 0.5 Thou/mm3 (0.0-0.8); Monocytes % (Auto) 9 % (0-12); Neutrophils # (Auto) 3.4 Thou/mm3 (1.8-7.7); Neutrophils % (Auto) 56 % (37-80); Nucleated Red Blood Cell # 0.00 Thou/mm3 (0.00-0.00); Nucleated Red Blood Cell % 0 /100 WBC (0); Platelet Count 188 Thou/mm3 (140-440); RDW Standard Deviation 42.7 fL (35.1-43.9); Red Blood Count 3.90 Miln/mm3 (4.50-5.90); White Blood Count 6.0 Thou/mm3 (3.8-10.6)
[2025-04-04 11:00] LABS: Alanine Aminotransferase < 7 U/L (10-49); Albumin, Serum 4.1 gm/dL (3.4-4.8); Albumin/Globulin Ratio 1.5 (1.2-2.2); Alkaline Phosphatase 113 U/L (46-116); Anion Gap 12 (7-16); Aspartate Amino Transferase 18 U/L (0-34); BUN/Creatinine Ratio 6 Ratio (12-20); Bilirubin,Total 0.5 mg/dL (0.3-1.2); Blood Urea Nitrogen 10 mg/dL (9-23); Calcium 9.2 mg/dL (8.3-10.6); Calcium (Corrected) 9.2 mg/dL (8.5-10.1); Carbon Dioxide 26.0 mMol/L (20.0-31.0); Chloride 101 mMol/L (98-107); Creatinine (Component) 1.6 mg/dL (0.6-1.3); Globulin 2.8 gm/dL (2.3-3.5); Glucose 92 mg/dL (74-106); Magnesium 2.3 mg/dL (1.6-2.6); Osmolality,Calculated 276 (275-295); Potassium 3.6 mMol/L (3.4-5.1); Sodium 139 mMol/L (136-145); Total Protein 6.9 gm/dL (5.7-8.2); Troponin I < 0.020 ng/mL (0.0-0.045); eGFR 44 See Note
[2025-04-04 11:11] LABS: B-Type Natriuretic Peptide 104 pg/mL (0-100)
--- NOTE | 2025-04-04 11:24 | EDNOTE_ITS ---
<Statement entered by Elsa Lopes MD - 04/04/25 15:08> As co-signing physician, I was present and available for consult prn. I concur with the plan and care as documented by the midlevel provider. ED General RME/HPI General Chief complaint: Extremity Problem,Nontraumatic Stated complaint: sent by Dr. Coates, leg swelling Time Seen by Provider: 04/04/25 11:08 Arrival date/time: 04/04/25 09:20 CC: Bilateral lower extremity swelling HPI ongoing for years however was not able to have surgery on 26 March at [facility] due to the swelling in his legs. Patient states he was sent over by Dr. Siegel for further evaluation. Patient states he has localized pain and the swelling has been worse in the last week. Patient denies chest pain shortness of breath or difficulty breathing Patient has 2 visits to the emergency room both in December and February 2025 for the same complaint. At both time the workups were negative and the patient was discharged home. RME / HPI RME / HPI narrative: 04/04/25 09:20 79-year-old male with a history of hypertension, hyperlipidemia, diabetes, peripheral vascular disease, presents to the emergency room with a chief complaint of bilateral lower extremity swelling x 1 month I have greeted and performed a focused initial assessment of this patient. A comprehensive ED assessment and evaluation of the patient, analysis of all test results, and completion of the medical decision making process will be conducted by additional ED providers. Related Data Home Medications ?Medication ?Instructions ?Recorded ?Confirmed nifedipine 30 mg tablet,extended 30 mg PO QDAY ##180 0 03/24/17 01/10/24 release (Nifedipine ER) furosemide 20 mg tablet 20 mg PO QDAY 08/05/1901/09 atorvastatin 10 mg tablet (Lipitor) 10 mg PO QPM 11/2201/10/24 tamsulosin 0.4 mg capsule 0.4 mg PO QDAY 11/22/2012/19 clonidine HCl 0.1 mg tablet 0.2 mg PO HS 05/08/2112/19 aspirin 81 mg chewable tablet 1 tab PO DAILY 12/06/21 01/10/24 dulaglutide 1.5 mg/0.5 mL 0.5 ea subcut QDAY 12/06/21 11/06/23 subcutaneous pen injector (Trulicity) tizanidine 4 mg tablet 1 tab PO PRN PRN Pain 11/06/23 allopurinol 100 mg tablet 100 mg PO QDAY 11/06/2312/19 metoprolol succinate 50 mg 50 mg PO 1XD 11/06/2301/09 tablet,extended release 24 hr Previous Rx's ?Medication ?Instructions ?Recorded hydrocodone 5 mg-acetaminophen 325 1 tab PO Q8H PRN pa in #7 tabs 01/12/24 mg tablet cyclobenzaprine 5 mg tablet 5 mg PO TID PRN muscle spa sm #14 05/02/24 tabs furosemide 20 mg tablet (Lasix) 20 mg PO QDAY #30 tabs 12/23/24 hydrocodone 5 mg-acetaminophen 325 1 tab PO Q6H PRN pa in #30 tabs 12/23/24 mg tablet acetaminophen 300 mg-codeine 30 mg 2 tab PO Q8H PRN pa in #20 tabs 03/07/25 tablet amoxicillin 875 mg-potassium 1 tab PO BID #20 tabs clavulanate 125 mg tablet furosemide 20 mg tablet (Lasix) 20 mg PO QDAY #30 tabs 03/07/25 Allergies Allergy/AdvReac Type Severity Reaction Status Date / Time No Known Allergies Allergy Verified 04/04/25 09:24 Review of Systems Review of Systems Narrative Review of Systems: GEN: No fever, no chills, no weight loss EYES: No discharge, no visual changes, no pain HEENT: No ear pain, no congestion, no sore throat PULM: No shortness of breath, no cough, no congestion CV: No chest pain, no dyspnea on exertion, no palpitations GI: No nausea, no vomiting, no diarrhea, no pain, no constipation : No frequency, no urgency, no dysuria MUSC/SKEL: No joint pain, no back pain,+ lower extremity edema SKIN: No rash PSYCH: No hallucinations, no depression HEME/LYMPH: No easy bleeding or bruising tendencies NEURO: No weakness, no headache Past Medical History Past Medical History NEUROLOGIC: Positive Neurological Disorders, Cerebrovascular Accident and Transient Ischemic Attacks (TIA); Negative Seizures CARDIAC: Positive Hypercholesterolemia and Hypertension; Negative Cardiac Disorders, Myocardial Infarction, Cardiac Arrhythmia, Atrial Fibrillation, Angina, Heart Murmur, Coronary Artery Disease, Atherosclerotic Heart Disease, Peripheral Vascular Disease, Aneurysm, Congestive Heart Failure, Congenital Heart Disease, Valvular Heart Disease, Rheumatic Fever, Cardiomyopathy, Edema, Pericarditis, Cellulitis, Deep Vein Thrombosis, Hypotension or Varicose Veins RESPIRATORY: Negative Chronic Obstructive Pulmonary Disease (COPD), Asthma, Tuberculosis or Sleep Apnea GASTROINTESTINAL: Positive Gastrointestinal Disorders and Obesity; Negative Hepatitis, Cirrhosis, Celiac Disease or Gall Bladder Disease GENITOURINARY: Positive Genitourinary Disorders, Kidney Stones, Prostate Cancer and Benign Prostatic Hyperplasia; Negative Renal Disease REPRODUCTIVE: Negative Testicular Cancer MUSCULOSKELETAL: Positive Musculoskeletal Disorders, Arthritis, Gout and Carpal Tunnel Syndrome ENT: Positive Cataracts; Negative Ear Infection ENDOCRINE: Positive Diabetes Mellitus Type 2; Negative Endocrine Disorders, Diabetes Mellitus Type 1, Hypoglycemia, Saint Jacob's Syndrome, [place]'s Disease, Hyperthyroidism, Hypothyroidism, Parathyroid Disease, Pituitary Disease, Syndrome of Inappropriate Antidiuretic Hormone (SIADH) or Adrenal Disease HEMATOLOGIC: Positive Anemia; Negative Blood Disorders or Sickle Cell Disease PSYCHO/SOCIAL: Negative Psychiatric Problems, Depression, Anxiety or Eating Disorder OTHER HISTORY: Positive Blood Transfusions, Cancer and Prostate Cancer; Negative Hospitalization, Autoimmune Disease, Shingles, Falls, Blood Transfusion Reaction, Anesthesia Reactions, Chemotherapy, Radiation Therapy, MRSA, Chicken Pox, Measles, Mumps or Testicular Cancer Family History FAMILY HISTORY: Positive Family Cardiac Disorders, Family Cancer and Family Surgery; Negative Family Psychiatric Problems, Family Respiratory Disorders, Family Gastrointestinal Problems or Family Anesthesia Reaction Surgical History SURGICAL: Positive Angiogram, Eye Surgery and Joint Replacement; Negative Cardiac Surgery, Pacemaker, Endocrine Surgery, Abdominal Surgery or Brain Shunt Social History SMOKING STATUS: Never smoker SECOND HAND EXPOSURE: No ED Exam Narrative Physical exam: [General: Not in any acute distress Head normocephalic HEENT: Within acceptable limits Neck is supple nontender Chest equal chest rise nontender to palpation Respiratory: Clear to auscultation no wheezes crackles or rubs CV: Rate rhythm is regular no murmurs rubs or clicks Abdomen is distended secondary to body habitus soft nontender no masses positive bowel sounds all 4 quadrants Back: No CVA tenderness no spinous process tenderness from cervical spine thoracic and lumbar spine Skin: Intact no petechiae rash induration ulceration or crepitus Extremities: Moving all extremity against resistance cap refill less than 2 seconds neurosensory intact., Pitting edema from the dorsum of the foot into the patella. Mild erythema, not warm to touch. Cap refill in the digits less than 2 seconds. Neuro: Awake alert oriented x3 Glascow coma 15 no focal deficits] Course Course Course Narrative: Patient's case laboratory findings clinical presentation, and imaging was discussed with Dr. Coates who wants to admit him for fluid overload. Patient is in agreement with this plan. Quality Measures none Orders Category Date Time Status EKG (ED ONLY) *Do not use* NOW Care 04/04/25 09:42 Completed EKG (ED Only) Stat Exams 04/04/25 09:42 Draft US venous doppler LE BI Stat Exams 04/04/25 11:29 Completed XR chest 2V Stat Exams 04/04/25 09:42 Completed B-Type Natriuretic Peptide Stat Lab 04/04/25 10:37 Completed CBC Stat Lab 04/04/25 10:37 Completed Comprehensive Metabolic Panel Stat Lab 04/04/25 10:22 Completed Magnesium Stat Lab 04/04/25 10:22 Completed Partial Thromboplastin Time Stat Lab 04/04/25 10:22 Completed Prothrombin Time with INR Stat Lab 04/04/25 10:22 Completed Troponin I Stat Lab 04/04/25 10:22 Completed Urinalysis, C/S if Indicated Stat Lab 04/04/25 12:12 Completed Urine Culture Stat Lab 04/04/25 12:12 Received Vital Signs Vital signs: Vital Signs Temperature 97.6 F 04/04/25 11:06 Pulse Rate 74 04/04/25 11:06 Respiratory Rate 18 04/04/25 11:06 Blood Pressure 131/89 H 04/04/25 11:06 Pulse Oximetry (%) 96 04/04/25 11:06 Oxygen Delivery Method Room Air 04/04/25 11:06 Discharge Plan Plan Patient Disposition: Other Care w/in Hosp ([facility]) Patient condition on transfer: Stable Prescriptions/Referrals Prescriptions/Med Rec: No Action atorvastatin [Lipitor] 10 mg tablet 10 mg PO QPM tamsulosin 0.4 mg capsule 0.4 mg PO QDAY nifedipine [Nifedipine ER] 30 MG tablet extended release 30 mg PO QDAY Qty: 180 furosemide 20 mg Tablet 20 mg PO QDAY clonidine HCl 0.1 mg tablet 0.2 mg PO HS Patient Comments: take 1 tablet by mouth once daily tizanidine 4 mg tablet 1 tab PO PRN PRN (Reason: Pain) Patient Comments: take 1 tablet by mouth at bedtime NEEDED FOR FEVER pain aspirin 81 mg tablet,chewable 1 tab PO DAILY Patient Comments: chew and swallow 1 tablet by mouth once daily Trulicity 1.5 mg/0.5 mL pen injector 0.5 ea SUBCUT QDAY Patient Comments: inject 0.5 milliliters ( 1 AND 1/2 milligrams ) subcutaneously ev... (REFER TO PRESCRIPTION NOTES). metoprolol succinate 50 mg Tablet Extended Release 24 Hr 50 mg PO 1XD allopurinol 100 mg Tablet 100 mg PO QDAY hydrocodone-acetaminophen 5-325 mg tablet 1 tab PO Q6H MDD 8 PRN (Reason: pain) Qty: 30 0RF furosemide [Lasix] 20 mg tablet 20 mg PO QDAY Qty: 30 0RF hydrocodone-acetaminophen 5-325 mg tablet 1 tab PO Q8H MDD 3 PRN (Reason: pain) Qty: 7 0RF cyclobenzaprine 5 mg tablet 5 mg PO TID PRN (Reason: muscle spasm) Qty: 14 0RF acetaminophen-codeine 300-30 mg tablet 2 tab PO Q8H MDD 6 PRN (Reason: pain) Qty: 20 0RF furosemide [Lasix] 20 mg tablet 20 mg PO QDAY Qty: 30 0RF amoxicillin-pot clavulanate 875-125 mg tablet 1 tab PO BID Qty: 20 0RF Referrals: Em Coates MD [Primary Care Provider, Nephrology] - In 1 week Problem List Clinical Impression: Edema of both lower extremities Patient/Caregiver Discharge Instructions Print Language: Malay Stand Alone Forms: Sofiya Award Info., Patient Portal Info Letter PA/DENTOFACIAL ORTHOPEDICS DENTIST Supervising Physician PA/DENTOFACIAL ORTHOPEDICS DENTIST Supervising Physician: Morales Reddy ENP [facility] Clinical Information Provided by patient Medical Records Reviewed [facility] Meds/Rx Considered, not Ordered None Labs/Rad/Tests considered, not Ordered None Chronic Illness/Social Conditions which may negatively complicate care or outcome(s)-explain: None or not applicable EKG EKG Interpretation narrative: EKG performed at 0 948 shows a ventricular rate of 63 UT interval 366 QRS of 89 QTc of 419 this is electronically paced rhythm. Baseline artifact Lab Interpretation Labs: interpreted by wy Lab(s) interpretation(s): CBC shows no leukocytosis patient has a stable anemia with a hemoglobin of 10.9 and a hematocrit of 32.8. No thrombocytopenia Coags within acceptable limits CMP shows no significant electrolyte imbalances creatinine at 1.6 BUN at 10. No transaminitis or T. bili elevation Troponin is unremarkable BNP at 104. Imaging Provider imaging interpretation(s): Chest x-ray is negative for any acute finding requires emergent or immediate intervention as interpreted by me read by radiology.
--- NOTE | 2025-04-04 11:29 | XR_ITS ---
Examination: Venous duplex lower extremity sonogram, bilateral. Date and time of exam: April 04, 2025 12 noon INDICATIONS: Bilateral leg swelling and pain beginning 2 months ago Technique: Multiple sonographic images of the deep venous system have been obtained. B-mode/2-D grayscale imaging of vascular structures and Doppler spectral analysis (waveforms) and color performed Both legs are examined. Findings: Deep venous systems do not demonstrate abnormal echogenicity. All visualized deep veins exhibit compressibility. All visualized deep veins exhibit augmentation. Impression: Negative for deep vein thrombosis
[2025-04-04 12:29] LABS: Collection Type, Urine Clean Catch
[2025-04-04 12:54] LABS: Bacteria,Urine Rare; Bilirubin,Urine Negative (Negative); Blood,Urine 1+ (Negative); Color,Urine Lt-Yellow (Lt Yel-Yel); Glucose, Urine 1+ (Negative); Ketones,Urine Negative (Negative); Leukocyte Esterase,Urine Positive (Negative); Nitrite,Urine Negative (Negative); PH,Urine 6.5 (5.0-7.0); Protein,Urine Trace (Neg - Trace); RBC,Urine 12 /hpf (0-3); Specific Gravity,Urine 1.010 (1.001-1.035); Squamous Epithelial Cell,Urine 3 /hpf (0-5); Urobilinogen,Urine Negative mg/dL (0.0-1.0); WBC,Urine 260 /hpf (0-5)
[2025-04-04 13:10] LABS: Clarity,Urine Hazy (Clear/Hazy); Culture Indicated,Urine Yes
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
[2025-04-04] MEDS: BUMETANIDE INJ 20 MG in CONTAINER,EMPTY 50 ML 1 BAG 8 MG IV (14:56)
[2025-04-04] MEDS: HEPARIN SOD INJ 5000 UNIT/ML VIAL SC ×2 (14:57→21:26)
--- NOTE | 2025-04-04 17:01 | ECHO_ITS ---
Transthoracic Echo Report Ht (in): 66 Wt (lb): 185 Exam Location: Echo Lab Status: Inpatient Steel Pickler: Jackie Rivas Indications: Procedure Performed: BP: 122 / 77 HR: 63 Technical Quality: Technically difficult study MEASUREMENTS (Male / Female) Normal Values 2D ECHO LVOT Diameter 1.8 cm Aortic Root Diameter 3.5 cm LV Ejection Fraction MOD 4C 38.3 % LV Cardiac Index MOD 4C 1315.7 cm?/min?m? LV Ejection Fraction 4C AL 38.1 % LV Cardiac Index 4C AL 1336.6 cm?/min?m? M-MODE Aortic Root Diameter MM 2.9 cm LA Systolic Diameter MM 3.2 cm LA Ao Ratio MM 1.1 AV Cusp Separation MM 1.9 cm DOPPLER AV Peak Velocity 115.0 cm/s AV Peak Gradient 5.3 mmHg AV Mean Gradient 4.0 mmHg AV Velocity Time Integral 29.5 cm LVOT Peak Velocity 76.1 cm/s LVOT Peak Gradient 2.3 mmHg LVOT Velocity Time Integral 17.9 cm LVOT Cardiac Index 1433.7 cm?/min?m? AV Area Cont Eq vti 1.5 cm? AV Area Cont Eq pk 1.7 cm? MV Area PHT 4.9 cm? MR Peak Velocity 261.0 cm/s MR Peak Gradient 27.2 mmHg Mitral E Point Velocity 47.5 cm/s Mitral A Point Velocity 43.7 cm/s Mitral E to A Ratio 1.1 TR Peak Velocity 263.0 cm/s TR Peak Gradient 27.7 mmHg PV Peak Velocity 66.5 cm/s PV Peak Gradient 1.8 mmHg FINDINGS Left Ventricle Normal left ventricular size, wall thickness. The ejection fraction is visually estimated at 40-45%. Global left ventricular systolic function is mild to moderately decreased. Right Ventricle The right ventricle is normal in size. The right ventricular systolic function is mildly decreased. Left Atrium The left atrium is normal by two-dimensional, color flow and Doppler imaging with no structural abnormalities, no thrombus formation present. Right Atrium The right atrium is normal by two-dimensional imaging, color flow and Doppler imaging with no structural abnormalities, no thrombus formation present. Atrial Septum The interatrial septum appears normal with no evidence of a shunt. Aorta The aorta is normal by two-dimensional, color flow and Doppler interrogation. Mitral Valve The mitral valve is not well visualized. Aortic Valve The aortic valve is not well visualized. Tricuspid Valve The tricuspid valve is not well visualized. Pulmonic Valve The pulmonic valve is not well visualized. There is no significant pulmonic valve regurgitation. Vessels Inferior vena cava not well visualized. Pericardium The pericardium is normal by two-dimensional imaging. There is no significant pericardial effusion. CONCLUSIONS Indication: worsening BLE edema Due to poor vusualization of LV endocardial border, cannot assess LVEF accurately. Normal LV size. Estimated EF at 40-45%. Global left ventricular systolic function is mild to moderately decreased. Unable to evaluate diastolic function due to technically difficulat study. The RV is normal in size. The right ventricular systolic function is mildly decreased. Shelby Henderson (Electronically Signed) Final Date: 07 April 2025 10:27
[2025-04-04] MEDS: HYDROcodone/APAP 5/325 TABLET 1 TAB PO (19:58)
--- NOTE | 2025-04-04 22:18 | PC.NURSE ---
attempted to do med rec, pt stated he gave his medication list to the nurse in ED, and did not get it back. Checked belongings and list is not present. Patient states his daughter has a copy at home and he will request that she brings it in, however she will not be available to bring it in untill after work tomorrow evening.
[2025-04-05] VITALS (12 sets, daily range): BP systolic 122–144; BP diastolic 66–95; PULSE 60–89; RESP 18–21; TEMP 36.1–36.4; O2SAT 94–97
[2025-04-05] MEDS: BUMETANIDE INJ 20 MG in CONTAINER,EMPTY 50 ML 1 BAG 8 MG IV (00:23)
[2025-04-05] MEDS: MORPHINE SULF INJ 4 MG/ML VIAL 2 MG IVP ×4 (00:27→12:01)
[2025-04-05] MEDS: HEPARIN SOD INJ 5000 UNIT/ML VIAL SC ×3 (05:21→21:37)
[2025-04-05 05:54] LABS: Basophils # (Auto) 0.0 Thou/mm3 (0.0-0.2); Basophils % (Auto) 0 % (0-2.5); Eosinophils # (Auto) 0.2 Thou/mm3 (0.0-0.5); Eosinophils % (Auto) 4 % (0-10); Hematocrit 33.6 % (41.0-53.0); Hemoglobin 11.1 g/dL (13.5-16.0); Immature Granulocytes Auto 0.01 Thou/mm3 (0.00-0.00); Lymphocytes # (Auto) 1.4 Thou/mm3 (1.0-4.8); Lymphocytes % (Auto) 27 % (10-50); Mean Corpuscular HGB Conc 33.0 g/dl (31.0-37.0); Mean Corpuscular Hemoglobin 28.2 pg (25.0-35.0); Mean Corpuscular Volume 86 fL (80-100); Monocytes # (Auto) 0.5 Thou/mm3 (0.0-0.8); Monocytes % (Auto) 9 % (0-12); Neutrophils # (Auto) 3.1 Thou/mm3 (1.8-7.7); Neutrophils % (Auto) 60 % (37-80); Nucleated Red Blood Cell # 0.00 Thou/mm3 (0.00-0.00); Nucleated Red Blood Cell % 0 /100 WBC (0); Platelet Count 177 Thou/mm3 (140-440); RDW Standard Deviation 43.4 fL (35.1-43.9); Red Blood Count 3.93 Miln/mm3 (4.50-5.90); White Blood Count 5.2 Thou/mm3 (3.8-10.6)
[2025-04-05 07:02] LABS: Alanine Aminotransferase < 7 U/L (10-49); Albumin, Serum 3.5 gm/dL (3.4-4.8); Albumin/Globulin Ratio 1.6 (1.2-2.2); Alkaline Phosphatase 103 U/L (46-116); Anion Gap 10 (7-16); Aspartate Amino Transferase 11 U/L (0-34); BUN/Creatinine Ratio 10 Ratio (12-20); Bilirubin,Total 0.3 mg/dL (0.3-1.2); Blood Urea Nitrogen 16 mg/dL (9-23); Calcium 8.7 mg/dL (8.3-10.6); Calcium (Corrected) 9.1 mg/dL (8.5-10.1); Carbon Dioxide 32.6 mMol/L (20.0-31.0); Chloride 101 mMol/L (98-107); Creatinine (Component) 1.6 mg/dL (0.6-1.3); Estimated Creatinine Clearance 38.0 mL/min (>60); Globulin 2.2 gm/dL (2.3-3.5); Glucose 164 mg/dL (74-106); Magnesium 1.9 mg/dL (1.6-2.6); Osmolality,Calculated 292 (275-295); Phosphorous 3.4 mg/dL (2.4-5.1); Potassium 3.5 mMol/L (3.4-5.1); Sodium 144 mMol/L (136-145); Total Protein 5.7 gm/dL (5.7-8.2); eGFR 44 See Note
[2025-04-05 07:26] LABS: Glucose Estimated Average 154 mg/dL (80-131); Hemoglobin A1C 7.0 % Hgb (4.8-6.0)
[2025-04-05] MEDS: HYDROcodone/APAP 5/325 TABLET 1 TAB PO ×2 (07:27→19:51)
[2025-04-05] MEDS: LACTULOSE SYRUP 20 GM/30 ML UDC 10 GM PO (09:00)
[2025-04-05] MEDS: VALSARTAN 80 MG TABLET PO (09:05)
[2025-04-05] MEDS: TAMSULOSIN HCL 0.4 MG CAPSULE PO (09:05)
[2025-04-05] MEDS: METOPROLOL SUCCINATE XL 25 MG TABCR 50 MG PO (09:05)
[2025-04-05] MEDS: PANTOPRAZOLE 40 MG TABLET PO (09:05)
[2025-04-05] MEDS: ASPIRIN 81 MG CHEW PO (09:05)
--- NOTE | 2025-04-05 10:00 | PC.SS ---
Patient Charly Hayes is a 79 Year old male admitted for CHF. SS met with patient and patient's daughter's at bedside to discuss discharge plan and verify demographic information. Patient appeared to be alert and oriented to person, place and situation. Patient reports he lives alone at home patient reports his surrogate decision maker is his daughter, Julieth Hayes, [phone]. Patient utilizes a Wheelchair, FWW, Rollator Walker and Cane to assist with ambulation. Patient does need assistance from his daughter completing his ADL's. Pharmacy of choice [facility]. PCP is Dr. Hayes and his Computer Typesetter is Dr. Henderson. Patient has a [facility] provider as well. At time of discharge patient will return back home, patients daughter will provide transportation. Discharge plan: Home Next of kin: DaughterJulieth
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
[2025-04-05] MEDS: INSULIN LISPRO (AdmeLOG) 1 UNIT/0.01 ML UNIT SC ×3 (11:20→21:38)
--- NOTE | 2025-04-05 12:35 | PC.SS ---
SS follow up note; renal function being monitored. Patient is pending an EEG. Patient will discharge home when medically cleared.
--- NOTE | 2025-04-05 19:35 | PC.NURSE ---
spoke to dr ovalle to confirm blood sugar and coverage, she states to place patient under ACHS with lispro and to change diet to cardiac consistent carb and to discontinue fluid restrictions.
[2025-04-05] MEDS: ATORVASTATIN CALCIUM 10 MG TABLET PO (21:38)
[2025-04-06] VITALS: PULSE 63
[2025-04-06 04:00] VITALS: BP 152/84; PULSE 59; PULSE 69; RESP 11; TEMP 36.1; O2SAT 95
[2025-04-06] MEDS: HYDROcodone/APAP 5/325 TABLET 1 TAB PO ×2 (05:13→11:34)
[2025-04-06] MEDS: HEPARIN SOD INJ 5000 UNIT/ML VIAL SC (05:13)
[2025-04-06 06:00] LABS: Basophils # (Auto) 0.0 Thou/mm3 (0.0-0.2); Basophils % (Auto) 1 % (0-2.5); Eosinophils # (Auto) 0.3 Thou/mm3 (0.0-0.5); Eosinophils % (Auto) 5 % (0-10); Hematocrit 32.9 % (41.0-53.0); Hemoglobin 10.7 g/dL (13.5-16.0); Immature Granulocytes Auto 0.01 Thou/mm3 (0.00-0.00); Lymphocytes # (Auto) 2.3 Thou/mm3 (1.0-4.8); Lymphocytes % (Auto) 37 % (10-50); Mean Corpuscular HGB Conc 32.5 g/dl (31.0-37.0); Mean Corpuscular Hemoglobin 27.9 pg (25.0-35.0); Mean Corpuscular Volume 86 fL (80-100); Monocytes # (Auto) 0.5 Thou/mm3 (0.0-0.8); Monocytes % (Auto) 8 % (0-12); Neutrophils # (Auto) 3.0 Thou/mm3 (1.8-7.7); Neutrophils % (Auto) 49 % (37-80); Nucleated Red Blood Cell # 0.00 Thou/mm3 (0.00-0.00); Nucleated Red Blood Cell % 0 /100 WBC (0); Platelet Count 185 Thou/mm3 (140-440); RDW Standard Deviation 43.9 fL (35.1-43.9); Red Blood Count 3.83 Miln/mm3 (4.50-5.90); White Blood Count 6.1 Thou/mm3 (3.8-10.6)
[2025-04-06 06:35] LABS: Alanine Aminotransferase < 7 U/L (10-49); Albumin, Serum 3.5 gm/dL (3.4-4.8); Albumin/Globulin Ratio 1.7 (1.2-2.2); Alkaline Phosphatase 91 U/L (46-116); Anion Gap 9 (7-16); Aspartate Amino Transferase 11 U/L (0-34); BUN/Creatinine Ratio 11 Ratio (12-20); Bilirubin,Total 0.3 mg/dL (0.3-1.2); Blood Urea Nitrogen 19 mg/dL (9-23); Calcium 8.8 mg/dL (8.3-10.6); Calcium (Corrected) 9.2 mg/dL (8.5-10.1); Carbon Dioxide 33.2 mMol/L (20.0-31.0); Cardiac Risk Estimate 3.5 RATIO (4.0-6.7); Chloride 103 mMol/L (98-107); Cholesterol 109 mg/dL (132-200); Creatinine (Component) 1.7 mg/dL (0.6-1.3); Estimated Creatinine Clearance 35.8 mL/min (>60); Globulin 2.1 gm/dL (2.3-3.5); Glucose 136 mg/dL (74-106); HDL Cholesterol 31 mg/dL (40-60); LDL Cholesterol,Calculated 49 mg/dL (0-130); Magnesium 1.9 mg/dL (1.6-2.6); Osmolality,Calculated 292 (275-295); Phosphorous 3.3 mg/dL (2.4-5.1); Potassium 3.7 mMol/L (3.4-5.1); Sodium 145 mMol/L (136-145); Total Protein 5.6 gm/dL (5.7-8.2); Triglycerides 144 mg/dL (30-150); eGFR 41 See Note
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
[2025-04-06 08:00] VITALS: BP 103/70; PULSE 74; RESP 18; TEMP 36.2; O2SAT 95
[2025-04-06 08:29] VITALS: BP 103/70; PULSE 74
[2025-04-06] MEDS: METOPROLOL SUCCINATE XL 25 MG TABCR 50 MG PO (08:29)
[2025-04-06 08:30] VITALS: BP 103/70; PULSE 74
[2025-04-06] MEDS: PANTOPRAZOLE 40 MG TABLET PO (08:30)
[2025-04-06] MEDS: TAMSULOSIN HCL 0.4 MG CAPSULE PO (08:30)
[2025-04-06] MEDS: ASPIRIN 81 MG CHEW PO (08:30)
[2025-04-06] MEDS: VALSARTAN 80 MG TABLET PO (08:30)
[2025-04-06] MEDS: LACTULOSE SYRUP 20 GM/30 ML UDC 10 GM PO (08:31)
[2025-04-06] MEDS: MAGNESIUM OXIDE 400 MG TABLET PO (08:31)
[2025-04-06] MEDS: INSULIN LISPRO (AdmeLOG) 1 UNIT/0.01 ML UNIT SC (11:41)
[2025-04-06 12:00] VITALS: BP 166/90; PULSE 66; PULSE 82; RESP 18; TEMP 36.2; O2SAT 96
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
== END 2025-04-06 13:39 | disposition home or self-care (01) | DRG 292 ==
LOC: SERX 13:20 → SERHOLD 14:24 → S3NX 18:23
PROVIDERS: Nurse Practitioner Family; Admitting Provider Internal Medicine; Emergency Provider Emergency Medicine; PCP Internal Medicine; Visit Provider Internal Medicine
DX: I13.0 Hypertensive heart and chronic kidney disease with heart failure and stage 1 through stage 4 chronic kidney disease, or unspecified chronic kidney disease (principal); I50.42 Chronic combined systolic (congestive) and diastolic (congestive) heart failure; E78.5 Hyperlipidemia, unspecified; E11.22 Type 2 diabetes mellitus with diabetic chronic kidney disease; E11.51 Type 2 diabetes mellitus with diabetic peripheral angiopathy without gangrene; M79.89 Other specified soft tissue disorders; N40.0 Benign prostatic hyperplasia without lower urinary tract symptoms; N18.30 Chronic kidney disease, stage 3 unspecified; Z79.4 Long term (current) use of insulin; Z79.82 Long term (current) use of aspirin; Z86.73 Personal history of transient ischemic attack (TIA), and cerebral infarction without residual deficits; Z95.0 Presence of cardiac pacemaker; D63.1 Anemia in chronic kidney disease
CPT/HCPCS: 36415; 71046; 80053; 80061; 81001; 83036; 83735; 83880; 84100; 84484; 85025; 85610; 85730; 87077; 87086; 87186; 93005; 93225; 93306; 93970; 96365; 96366; 96375; 99284; J1644; J1815; J2270; J3490; A9270

== ENCOUNTER → 2025-04-20 | Outpatient (CLI) | payer MEDICARE, MEDICAID, SELFPAY ==
[2025-04-20 13:44] LABS: Basophils # (Auto) 0.0 Thou/mm3 (0.0-0.2); Basophils % (Auto) 1 % (0-2.5); Eosinophils # (Auto) 0.3 Thou/mm3 (0.0-0.5); Eosinophils % (Auto) 5 % (0-10); Hematocrit 31.2 % (41.0-53.0); Hemoglobin 10.3 g/dL (13.5-16.0); Immature Granulocytes Auto 0.01 Thou/mm3 (0.00-0.00); Lymphocytes # (Auto) 1.7 Thou/mm3 (1.0-4.8); Lymphocytes % (Auto) 29 % (10-50); Mean Corpuscular HGB Conc 33.0 g/dl (31.0-37.0); Mean Corpuscular Hemoglobin 27.9 pg (25.0-35.0); Mean Corpuscular Volume 85 fL (80-100); Monocytes # (Auto) 0.6 Thou/mm3 (0.0-0.8); Monocytes % (Auto) 10 % (0-12); Neutrophils # (Auto) 3.2 Thou/mm3 (1.8-7.7); Neutrophils % (Auto) 55 % (37-80); Nucleated Red Blood Cell # 0.00 Thou/mm3 (0.00-0.00); Nucleated Red Blood Cell % 0 /100 WBC (0); Platelet Count 269 Thou/mm3 (140-440); RDW Standard Deviation 43.1 fL (35.1-43.9); Red Blood Count 3.69 Miln/mm3 (4.50-5.90); White Blood Count 5.8 Thou/mm3 (3.8-10.6)
[2025-04-20 13:49] LABS: INR 1.0 (0.9-1.3); Partial Thromboplastin Time 28.1 Seconds (22.0-36.0); Prothrombin Time 10.7 Seconds (9.0-12.2)
[2025-04-20 14:01] LABS: Anion Gap 10 (7-16); BUN/Creatinine Ratio 15 Ratio (12-20); Blood Urea Nitrogen 29 mg/dL (9-23); Calcium 8.4 mg/dL (8.3-10.6); Carbon Dioxide 28.8 mMol/L (20.0-31.0); Chloride 100 mMol/L (98-107); Creatinine (Component) 1.9 mg/dL (0.6-1.3); Glucose 108 mg/dL (74-106); Osmolality,Calculated 284 (275-295); Potassium 3.6 mMol/L (3.4-5.1); Sodium 139 mMol/L (136-145); eGFR 35 See Note
== END | disposition home or self-care (01) ==
LOC: COPL 12:01
PROVIDERS: PCP Internal Medicine; Referring Provider Internal Medicine; Visit Provider Internal Medicine
DX: I25.10 Atherosclerotic heart disease of native coronary artery without angina pectoris (principal); I48.91 Unspecified atrial fibrillation
CPT/HCPCS: 36415; 80048; 85025; 85610; 85730

== ENCOUNTER → 2025-07-03 | Outpatient (CLI) | payer MEDICARE, MEDICAID, SELFPAY ==
[2025-07-03 11:27] LABS: Basophils # (Auto) 0.0 Thou/mm3 (0.0-0.2); Basophils % (Auto) 1 % (0-2.5); Eosinophils # (Auto) 0.2 Thou/mm3 (0.0-0.5); Eosinophils % (Auto) 2 % (0-10); Hematocrit 38.7 % (41.0-53.0); Hemoglobin 12.3 g/dL (13.5-16.0); Immature Granulocytes Auto 0.01 Thou/mm3 (0.00-0.00); Lymphocytes # (Auto) 2.2 Thou/mm3 (1.0-4.8); Lymphocytes % (Auto) 30 % (10-50); Mean Corpuscular HGB Conc 31.8 g/dl (31.0-37.0); Mean Corpuscular Hemoglobin 26.5 pg (25.0-35.0); Mean Corpuscular Volume 83 fL (80-100); Monocytes # (Auto) 0.5 Thou/mm3 (0.0-0.8); Monocytes % (Auto) 7 % (0-12); Neutrophils # (Auto) 4.2 Thou/mm3 (1.8-7.7); Neutrophils % (Auto) 60 % (37-80); Nucleated Red Blood Cell # 0.00 Thou/mm3 (0.00-0.00); Nucleated Red Blood Cell % 0 /100 WBC (0); Platelet Count 177 Thou/mm3 (140-440); RDW Standard Deviation 51.5 fL (35.1-43.9); Red Blood Count 4.64 Miln/mm3 (4.50-5.90); White Blood Count 7.1 Thou/mm3 (3.8-10.6)
[2025-07-03 11:47] LABS: Collection Type, Urine Clean Catch
[2025-07-03 12:36] LABS: Glucose Estimated Average 134 mg/dL (80-131); Hemoglobin A1C 6.3 % Hgb (4.8-6.0)
[2025-07-03 12:40] LABS: Alanine Aminotransferase 10 U/L (10-49); Albumin, Serum 4.1 gm/dL (3.4-4.8); Albumin/Globulin Ratio 1.8 (1.2-2.2); Alkaline Phosphatase 101 U/L (46-116); Anion Gap 9 (7-16); Aspartate Amino Transferase 20 U/L (0-34); BUN/Creatinine Ratio 11 Ratio (12-20); Bilirubin,Total 0.7 mg/dL (0.3-1.2); Blood Urea Nitrogen 16 mg/dL (9-23); Calcium 8.7 mg/dL (8.3-10.6); Calcium (Corrected) 8.7 mg/dL (8.5-10.1); Carbon Dioxide 27.8 mMol/L (20.0-31.0); Cardiac Risk Estimate 1.9 RATIO (4.0-6.7); Chloride 107 mMol/L (98-107); Cholesterol 118 mg/dL (132-200); Creatinine (Component) 1.5 mg/dL (0.6-1.3); Globulin 2.3 gm/dL (2.3-3.5); Glucose 75 mg/dL (74-106); HDL Cholesterol 61 mg/dL (40-60); LDL Cholesterol,Calculated 38 mg/dL (0-130); Osmolality,Calculated 287 (275-295); Potassium 4.2 mMol/L (3.4-5.1); Sodium 144 mMol/L (136-145); Thyroid Stimulating Hormone 3.14 uIU/mL (0.55-4.78); Total Protein 6.4 gm/dL (5.7-8.2); Triglycerides 96 mg/dL (30-150); eGFR 47 See Note
[2025-07-03 12:45] LABS: Creatinine MALB Rnd Ur 46 mg/dL (30-125); Microalbumin Creat Ratio 87 mg/gCrea (<30); Microalbumin, Random Urine 40 mg/L (0-300)
[2025-07-03 12:51] LABS: Bilirubin,Urine Negative (Negative); Blood,Urine Negative (Negative); Clarity,Urine Clear (Clear/Hazy); Color,Urine Lt-Yellow (Lt Yel-Yel); Glucose, Urine 1+ (Negative); Hyaline Casts,Urine < 1 /hpf (0-1); Ketones,Urine Negative (Negative); Leukocyte Esterase,Urine Positive (Negative); Nitrite,Urine Negative (Negative); PH,Urine 6.5 (5.0-7.0); Protein,Urine Negative (Neg - Trace); RBC,Urine 3 /hpf (0-3); Specific Gravity,Urine 1.009 (1.001-1.035); Squamous Epithelial Cell,Urine 3 /hpf (0-5); Urobilinogen,Urine Negative mg/dL (0.0-1.0); WBC,Urine 11 /hpf (0-5)
[2025-07-03 12:52] LABS: Culture Indicated,Urine Yes
[2025-07-03 13:37] LABS: Parathyroid Hormone Intact 279.8 pg/ml (18.5-88.0)
== END | disposition home or self-care (01) ==
LOC: COPL 10:38
PROVIDERS: PCP Internal Medicine; Referring Provider Internal Medicine; Visit Provider Internal Medicine
DX: I12.9 Hypertensive chronic kidney disease with stage 1 through stage 4 chronic kidney disease, or unspecified chronic kidney disease (principal); E11.22 Type 2 diabetes mellitus with diabetic chronic kidney disease; N18.30 Chronic kidney disease, stage 3 unspecified; E78.5 Hyperlipidemia, unspecified
CPT/HCPCS: 36415; 80053; 80061; 81001; 82043; 82570; 83036; 83970; 84443; 85025; 87077; 87086; 87186